=== PATIENT | female | born 1995 | race Caucasian/White ===

== ENCOUNTER 2022-01-23 09:41 | Emergency (ER) | payer MEDICAID, SELFPAY ==
--- NOTE | 2022-01-23 | ECG_ITS ---
Test Reason : right face numbness Blood Pressure : / mmHG Vent. Rate : 107 BPM Atrial Rate : 107 BPM P-R Int : 132 ms QRS Dur : 074 ms QT Int : 342 ms P-R-T Axes : 071 077 -39 degrees QTc Int : 456 ms Sinus tachycardia T wave abnormality, consider inferior ischemia RSR' or QR pattern in V1 suggests right ventricular conduction delay Nonspecific T wave abnormality Anterior leads Abnormal ECG When compared with ECG of 26-APR-2016 22:18, No significant change was found Referred By: Generic ED Physician Electronically Signed By:TIFF CROWE MD
[2022-01-23 09:43] VITALS: BP 123/90; PULSE 112; RESP 18; TEMP 36.7; O2SAT 98; BMI 21.1
--- NOTE | 2022-01-23 09:50 | PC.NURSE ---
notified charge ekg needed in triage
--- NOTE | 2022-01-23 10:10 | PC.NURSE ---
Addendum entered by Demi Almendarez RN 01/23/22 10:18: mistype of previous note- asked tech to perform ekg Original Note: asked tech to perform triage
[2022-01-23 12:01] LABS: MANUAL DIFF FLAG NO
[2022-01-23 12:03] LABS: Basophils Percent Auto 0.2 % (0-2); Eosinophils Absolute Auto 0.1 X10*3/uL (0.0-0.4); Eosinophils Percent Auto 0.6 % (0-4); Hematocrit 37.5 % (37.0-47.0); Hemoglobin 12.4 g/dl (12.0-16.0); Imm Gran Abs Auto 0.02 X10*3/uL (0.00-0.03); Imm Gran Pct Auto 0.2 % (0.0-0.4); Lymphocytes Absolute Auto 1.5 X10*3/uL (1.2-4.9); Lymphocytes Percent Auto 18.3 % (20-40); Mean Corpuscular HGB Conc 33.1 g/dl (31.0-35.0); Mean Corpuscular Hemoglobin 27.7 pg (27.0-33.0); Mean Corpuscular Volume 83.7 fL (80.0-98.0); Mean Platelet Volume 11.4 fL (9.4-12.3); Monocytes Absolute Auto 0.6 X10*3/uL (0.1-1.2); Monocytes Percent Auto 6.8 % (2-11); Neutrophils Absolute Auto 6.2 x10*3/uL (2.0-8.3); Neutrophils Percent Auto 73.9 % (45-73); Platelet Count 259 X10*3/uL (160-400); Red Blood Count 4.48 X10*6/uL (4.20-5.50); Red Cell Distribution Width 13.5 % (11.0-16.0); White Blood Count 8.3 X10*3/uL (4.8-10.8)
[2022-01-23 12:15] LABS: Anion Gap 16 (12-20); Blood Urea Nitrogen 7 mg/dL (9-16); Calcium 9.6 mg/dL (8.4-10.2); Carbon Dioxide 22 mmol/L (22-29); Chloride 106 mmol/L (96-108); Creatinine Clr Calc Pharmacy 88.4; Estimated Glomerular Filt Rate > 60; Glucose Random 86 mg/dL (60-115); Potassium 3.8 mmol/L (3.3-5.1); Sodium 140 mmol/L (135-145)
[2022-01-23 13:53] VITALS: BP 136/79; PULSE 106; RESP 16; TEMP 36.9; O2SAT 100
[2022-01-23 15:49] VITALS: BP 116/82; PULSE 79; RESP 16; TEMP 36.9; O2SAT 99
--- NOTE | 2022-01-23 15:51 | ED_ITS ---
HPI - Neuro Symptoms/Deficit General Chief Complaint: Neuro Symptoms/Deficit Stated Complaint: L side of face numb Time Seen by Provider: 01/23/22 15:50 Source: patient Mode of arrival: ambulatory Limitations: no limitations History of Present Illness HPI Narrative: Patient is a 26 year old assigned female at with no reported medical history, presenting to the emergency department today with resolved right hand and facial tingling. Patient states that when she woke up this morning she had numbness and tingling to her right face and right upper extremity. Patient states that after a few minutes, the numbness and tingling went away. Patient states that now, it is completely gone. Patient denies any dizziness, lightheadedness, abdominal pain, nausea, vomiting, fever, chills, blurry vision, double vision, loss of vision, chest pain, difficulty breathing, shortness of breath, back pain, night sweats, pain with urination, increased urinary frequency, increased urinary urgency, blood in her urine or stool, syncope or a near syncopal episode, recent trauma or falls, bowel incontinence, bladder incontinence, bowel retention, bladder retention, or any other complaints at this time. History of same: No Severity: mild Quality: numb and tingling Relieving factors: time Exacerbating factors: none Associated symptoms: denies other symptoms Treatments Prior to Arrival: none Related Data Allergies Allergy/AdvReac Type Severity Reaction Status Date / Time No Known Allergies Allergy Verified 01/23/22 09:43 [No Known Allergies*] Review of Systems Constitutional: Constitutional: Reports no additional constitutional complaints, Denies chills, Denies fever(s) and Denies night sweats Eyes: Eyes: Reports no additional eye complaints, Denies blurry vision, Denies change in vision, Denies diplopia, Denies eye discharge, Denies loss of vision and Denies eye pain ENT: Denies dizziness Cardiovascular: Cardiovascular: Reports no additional cardiovascular complaints, Denies chest pain, Denies lightheadedness, Denies Loss of Consciousness and Denies dyspnea Respiratory: Respiratory: Reports no additional respiratory complaints and Denies dyspnea Gastrointestinal: Gastrointestinal: Reports no additional gastrointestinal complaints, Denies abdominal pain, Denies melena, Denies hematochezia, Denies change in bowel habits and Denies change in stool character Genitourinary: Genitourinary: Denies hematuria, Denies urinary frequency, Denies dysuria, Denies urinary incontinence, Denies urinary hesitancy and Denies urinary urgency Musculoskeletal: Musculoskeletal: Reports no additional musculoskeletal complaints, Denies numbness and Denies tingling Neurologic: Denies dizziness, Denies loss of vision, Denies numbness and Denies tingling Psychiatric: Psychiatric: Reports no additional psychiatric complaints Endocrine: Endocrine: Reports no additional endocrine complaints Hematologic/Lymphatic: Hematologic/Lymphatic: Reports no additional hematologic/lymphatic complaints Allergic/Immunologic: Allergic/Immunologic: Reports no additional allergic/i mmunologic complaints PMFSH Past Medical History Attestation statement: The following information was validated with the patient. Source: old records reviewed Social History Social History Advance Directives: No Advance Directives Information Provided: No Physical Exam Vital Signs: Vital Signs: Last Vital Signs Temp 98.4 F 01/23/22 15:49 Pulse 79 01/23/22 15:49 Resp 16 01/23/22 15:49 BP 116/82 01/23/22 15:49 Pulse Ox 99 01/23/22 15:49 O2 Del Method 01/23/22 15:49 BMI result Body Mass Index 21.1 Const: General: cooperative, no acute distress, alert and awake Nutritional Appearance: well nourished Orientation/consciousness: patient oriented x3 Limitations: no limitations HEENT: Head: Yes normal to inspection and Yes atraumatic Ears: hearing grossly normal bilaterally and external ears normal General nose exam: Normal external nose present, no nasal discharge noted and no epistaxis Face and sinus: Yes normal facial exam, No abrasion and No laceration Mouth: Normal oral and palatal mucosa present, no drooling and no muffled voice Eyes: General: appearance normal, both eyes and all related structures Periorbital: periorbital findings normal Eyelids: Yes eyelids normal Conjunctivae: conjunctivae normal Pupils: Equal, round and reactive pupils present EOM: EOMs intact bilaterally Neck: Neck: Yes normal visual inspection, Yes full ROM and Yes no lymphadenopathy Chest: Chest palpation & inspection: normal inspection of the chest Resp: Effort & Inspection: normal respiratory effort and able to speak in complete sentences Auscultation: clear to auscultation bilaterally Cardio: Rate: regular rate Rhythm: regular rhythm GI: Inspection: Yes normal to inspection Neuro: General: patient oriented x3 and moves all extremities Cranial nerves: Yes Equal, round and reactive pupils present Cognition (Neuro): normal cognition Motor exam (neuro): 5/5 motor strength present throughout Sensory Exam: Normal double simultaneous stimulation for sensation Coordination: [id number] test normal Extrem: General: Yes normal to inspection, Yes full ROM and Yes capillary refill normal Psych: Appearance: grossly normal Mental Status: mental status grossly normal Affect: normal affect Attitude: cooperative Thought process: Normal thought process present Thought content: Normal thought content present Insight: Good insight present (Psych) MDM - Neuro Symptoms/Deficit MDM Narrative Medical decision making narrative: Patient is a 26 year old assigned female at with no reported medical history presenting to the emergency department today with resolved right sided facial and upper extremity numbness. Patient's physical exam was unremarkable including a negative neurological examination and stroke scale. Patient's blood work was unremarkable. Patient's current clinical presentation is most consistent with cervical radiculopathy. I explained my physical exam findings as well as all test results to the patient. I answered all questions asked by the patient. I stressed the importance of the patient taking her medication as p rescribed. I stressed the importance of the patient following up with her primary care provider. I stressed the importance of the patient returning to the emergency department immediately if her symptoms were to return or if she were to develop any dizziness, shortness of breath, difficulty breathing, chest pain, blurry vision, loss of vision, nausea, vomiting, abdominal pain, fever, chills, back pain, or any other complaints. Patient verbalized agreement and understanding with this treatment plan and discharge. Medical Records Attestation: I reviewed the patient's medical records. Lab Data Attestation: I reviewed the patient's lab results. Result diagrams: 01/23/22 11:38 01/23/22 11:38 Labs: Lab Results 01/23/22 01/23/22 Range/Units 11:38 11:38 WBC 8.3 (4.8-10.8) X10*3/uL RBC 4.48 (4.20-5.50) X10*6/uL Hgb 12.4 (12.0-16.0) g/dl Hct 37.5 (37.0-47.0) % MCV 83.7 (80.0-98.0) fL MCH 27.7 (27.0-33.0) pg MCHC 33.1 (31.0-35.0) g/dl RDW 13.5 (11.0-16.0) % Plt Count 259 (160-400) X10*3/uL MPV 11.4 (9.4-12.3) fL Immature Gran % (Auto) 0.2 (0.0-0.4) % Neut % (Auto) 73.9 H (45-73) % Lymph % (Auto) 18.3 L (20-40) % Piatt % (Auto) 6.8 (2-11) % Eos % (Auto) 0.6 (0-4) % Baso % (Auto) 0.2 (0-2) % Lymph # (Auto) 1.5 (1.2-4.9) X10*3/uL Piatt # (Auto) 0.6 (0.1-1.2) X10*3/uL Eos # (Auto) 0.1 (0.0-0.4) X10*3/uL Baso # (Auto) 0.0 (0.0-0.2) X10*3/uL Abs Immat Gran (auto) 0.02 (0.00-0.03) X10*3/uL Absolute Neuts (auto) 6.2 (2.0-8.3) x10*3/uL Absolute Nucleated RBC 0.000 (0.0-0.012) X10*3/uL Nucleated RBC % (auto) 0.0 (0.0-0.2) /100WBC Sodium 140 (135-145) mmol/L Potassium 3.8 (3.3-5.1) mmol/L Chloride 106 (96-108) mmol/L Carbon Dioxide 22 (22-29) mmol/L Anion Gap 16 (12-20) BUN 7 L (9-16) mg/dL Creatinine 0.74 (0.5-1.4) mg/dL Estim Creat Clear Calc 88.4 Estimated GFR > 60 Random Glucose 86 (60-115) mg/dL Calcium 9.6 (8.4-10.2) mg/dL Discharge Plan Discharge Clinical Impression: Cervical radiculopathy Patient Disposition: Home, Self-Care Instructions: Cervical Radiculopathy (ED) Additional Instructions: Follow up with your primary care provider. Return to the emergency department immediately if your symptoms worsen or if you develop any dizziness, shortness of breath, difficulty breathing, chest pain, blurry vision, loss of vision, nausea, vomiting, abdominal pain, fever, chills, back pain, or any other complaints. Referrals: [facility] [place] Family Medicine [Provider Group] (Call to establish and follow up with a primary care provider. If you already have a primary care provider, please follow up with them. ) [facility] [place] [Provider Group] (Call to establish and follow up with a primary care provider. If you already have a primary care provider, please follow up with them. ) [facility] [place] [Provider Group] (Call to establish and follow up with a primary care provider. If you already have a primary care provider, please follow up with them. ) Stand Alone Forms: Work/School Release Interventions: ED Discharge Assessment Last Done: 01/23/22 16:09 Discharge Date/Time: 01/23/22 16:09 Print Language: Salvadorean
== END 2022-01-23 16:09 | disposition home or self-care (01) ==
LOC: HO.ED 16:03
PROVIDERS: Emergency Provider Emergency Medicine Emergency Medical Services
DX: R20.0 Anesthesia of skin (principal); M54.12 Radiculopathy, cervical region; Z79.899 Other long term (current) drug therapy
CPT/HCPCS: 36415; 80048; 85025; 93005; 99283

== ENCOUNTER 2022-11-06 15:34 | Outpatient (REF) | payer MEDICAID, SELFPAY ==
[2022-11-06 17:04] LABS: Iron 57 mcg/dL (30-160); Percent Iron Saturation 14 % (15-50); Total Iron Binding Capacity 412 mcg/dL (228-428); Unsaturated Iron Binding 355 ug/dL
[2022-11-06 17:23] LABS: Ferritin 4 ng/mL (10-122)
== END 2022-11-06 15:35 | disposition home or self-care (01) ==
LOC: HO.HHCL 15:34
PROVIDERS: Visit Provider Registered Nurse
DX: R25.8 Other abnormal involuntary movements (principal)
CPT/HCPCS: 36415; 82728; 83540; 84443

== ENCOUNTER 2023-07-09 05:40 | Emergency (ER) | payer MEDICAID, SELFPAY ==
--- NOTE | ~2023-07-09 | CT_ITS ---
EXAMINATION: CT ABDOMEN AND PELVIS WITHOUT CONTRAST CLINICAL INFORMATION: Flank pain. History of renal colic. COMPARISON: Previous CT of the abdomen and pelvis September 2017 TECHNIQUE: Multidetector volumetric imaging was performed from the superior aspect of the liver through the pubic symphysis. Sagittal and coronal reformatted images were obtained on the technologist's workstation. This CT examination was performed using dose optimization techniques as appropriate, variously including the following: *Automated exposure control *Adjustment of mA and/or kV according to patient size (this includes techniques or standardized protocols for targeted exams where dose is matched to indication/reason for exam; i.e. extremities or head) *Use of iterative reconstruction technique DLP: 373 mGy-cm FINDINGS: LUNG BASES: The visualized lung bases are unremarkable. LIVER, GALLBLADDER, AND BILIARY TREE: The liver is normal in size, shape, and attenuation. No focal hepatic lesion or biliary ductal dilatation is present. The gallbladder is unremarkable with no evidence of radiopaque gallstones, gallbladder wall thickening, or obvious pericholecystic inflammatory changes. PANCREAS: Unremarkable. SPLEEN: Unremarkable. ADRENAL GLANDS: Unremarkable. KIDNEYS AND URETERS: Moderate to severe right hydronephrosis and ureteral dilatation from a 4 mm right distal ureteral stone. There is stranding of the right perinephric fat and small amount of fluid surrounding the right kidney and ureter. This may be related to backflow of urine from obstruction. Differential would include infection. Clinical correlation recommended. Small bilateral renal stones. BLADDER: Not optimally distended. GASTROINTESTINAL TRACT: The small and large bowel are unremarkable. The appendix is unremarkable. ABDOMINAL WALL: No significant hernia is appreciated. LYMPH NODES: Normal. VASCULAR: Unremarkable. PELVIC VISCERA: Unremarkable. OSSEOUS STRUCTURES: Unremarkable. CT/CT abdomen pelvis wo IV con IMPRESSION: Moderate to severe right hydronephrosis and ureteral dilatation from a 4 mm right distal ureteral stone. Right perinephric and periureteral fat stranding and small amount of fluid. This may represent backflow of urine due to obstruction. Differential would include infection. Clinical correlation recommended. Small bilateral renal stones. Fleischner guidelines were followed.
[2023-07-09 05:45] VITALS: BP 139/89; PULSE 112; RESP 18; TEMP 36.4; O2SAT 98; BMI 22.9
[2023-07-09 06:02] LABS: Basophils Percent Auto 0.4 % (0-2); Eosinophils Absolute Auto 0.3 X10*3/uL (0.0-0.4); Eosinophils Percent Auto 2.4 % (0-4); Hematocrit 40.1 % (37.0-47.0); Hemoglobin 13.4 g/dl (12.0-16.0); Imm Gran Abs Auto 0.03 X10*3/uL (0.00-0.03); Imm Gran Pct Auto 0.3 % (0.0-0.4); Lymphocytes Absolute Auto 2.3 X10*3/uL (1.2-4.9); Lymphocytes Percent Auto 20.1 % (20-40); MANUAL DIFF FLAG NO; Mean Corpuscular HGB Conc 33.4 g/dl (31.0-35.0); Mean Corpuscular Hemoglobin 28.3 pg (27.0-33.0); Mean Corpuscular Volume 84.6 fL (80.0-98.0); Mean Platelet Volume 10.9 fL (9.4-12.3); Monocytes Percent Auto 9.2 % (2-11); Neutrophils Absolute Auto 7.7 x10*3/uL (2.0-8.3); Neutrophils Percent Auto 67.6 % (45-73); Platelet Count 280 X10*3/uL (160-400); Red Blood Count 4.74 X10*6/uL (4.20-5.50); Red Cell Distribution Width 12.5 % (11.0-16.0); White Blood Count 11.4 X10*3/uL (4.8-10.8)
[2023-07-09 06:18] LABS: Alanine Aminotransferase 9 U/L (0-31); Albumin Level 4.3 g/dL (3.5-5.0); Alkaline Phosphatase 63 U/L (39-117); Anion Gap 15 (12-20); Aspartate Amino Transferase 14 U/L (5-31); Bilirubin Total 0.3 mg/dL (0.0-1.0); Blood Urea Nitrogen 9 mg/dL (9-16); Calcium 9.5 mg/dL (8.4-10.2); Carbon Dioxide 19 mmol/L (22-29); Chloride 109 mmol/L (96-108); Creatinine Clr Calc Pharmacy 59.5; Estimated Glomerular Filt Rate > 60; Glucose Random 97 mg/dL (60-115); Potassium 3.4 mmol/L (3.3-5.1); Sodium 140 mmol/L (135-145); Total Protein 7.7 g/dL (6.5-8.0)
[2023-07-09 08:03] LABS: HCG Quantitative < 2 mIU/mL
[2023-07-09 08:07] VITALS: BP 135/79; PULSE 112; RESP 19; TEMP 36.8; O2SAT 99
--- NOTE | 2023-07-09 08:09 | ED_ITS ---
HPI - General Adult General Chief complaint: Abdominal Pain Stated complaint: ride sided pain, possible kidney stone Time Seen by Provider: 07/09/23 08:07 Source: patient Mode of arrival: ambulatory Limitations: no limitations History of Present Illness HPI narrative: Patient is a 28-year-old female with history of kidney stones presenting to the emergency department with complaint of right flank pain radiating to abdomen which began abruptly around 1:00 a.m.. Patient reports hematuria. Also complains of nausea and vomiting. States pain is similar to previous episodes of kidney stones but more severe. Denies fevers. Denies any diarrhea or constipation. LMP 06/24-. Is on OCPs. MD complaint: Right flank pain Onset (ago): hour(s) Radiation: abdomen Severity: severe Severity scale (1-10): 8 Quality: sharp Pain Consistency: constant Relieving factors: none Exacerbating factors: movement Associated symptoms: nausea/vomiting Treatments prior to arrival: none Related Data Previous Rx's Medication Instructions Recorded cefuroxime axetil 500 mg tablet 500 mg PO BID #14 tabs 07/09/23 ondansetron HCl 4 mg tablet 4 mg PO Q8H PRN nausea and 07/09/23 vomiting #10 tabs oxycodone 5 mg tablet 5 mg PO Q8H PRN severe pain (scale 07/09/23 score 7-10) #6 tabs prednisone 20 mg tablet 20 mg PO DAILY #5 tabs 07/09/23 tamsulosin 0.4 mg capsule 0.4 mg PO DAILY #14 caps 07/09/23 Allergies Allergy/AdvReac Type Severity Reaction Status Date / Time No Known Allergies Allergy Verified 01/23/22 09:43 [No Known Allergies*] Review of Systems 2 Review of Systems: As per HPI. Yes all other systems are reviewed and are negative Constitutional: Constitutional: Reports as per HPI [facility] Social History Social History Smoked in Last 30 Days: No Use of substances other than those prescribed or required for medical reasons: No Advance Directives: No Advance Directives Information Provided: No Physical Exam ED Vital Signs: Vital Signs - 24 hr 07/09/23 05:45 07/09/23 08:07 07/09/23 08:29 Temperature 97.6 F 98.2 F Pulse Rate 112 H 112 H 117 H Respiratory Rate 18 19 22 H Blood Pressure 139/89 135/79 133/92 H Pulse Oximetry 98 99 97 Oxygen Delivery Method Room Air Room Air Room Air BMI result Body Mass Index 22.9 Vital signs have been reviewed and appear to be correct. Blood pressure normal. Heart rate tachycardic. Respiratory rate normal. Temperature normal. Oxygen saturation normal. Const General: cooperative, healthy appearing and no acute distress Orientation/consciousness: oriented to person, oriented to place, oriented to time and patient oriented x3 Limitations: no limitations HENMT Head: Yes normocephalic and Yes atraumatic Ears: external ears normal General nose exam: Normal external nose present Face and sinus: Yes face symmetric Mouth: oropharynx normal and moist mucous membranes Throat: Yes uvula midline Eyes Pupils: Equal, round and reactive pupils present Neck Neck: Yes normal visual inspection and Yes supple Resp Effort & Inspection: normal respiratory effort and able to speak in complete sentences Auscultation: clear to auscultation bilaterally Cardio Rate: regular rate Rhythm: regular rhythm Heart sounds: S1 normal heart sound present and S2 normal heart sound present GI Palpation (GI): Soft to palpation and nontender Auscultation: normoactive bowel sounds General: Yes no CVA tenderness Back/Spine/Pelvis Back: no CVA tenderness Skin General skin exam: elasticity normal and turgor normal Neuro General: oriented to person, oriented to place, oriented to time, patient oriented x3, moves all extremities, no focal motor deficits and CN's II-XI intact bilaterally Cranial nerves: Yes Equal, round and reactive pupils present Cognition (Neuro): normal cognition Extrem General: Yes full ROM, Yes no pedal edema and Yes no calf tenderness Psych Mental Status: mental status grossly normal Affect: normal affect Thought process: Normal thought process present Medications Administered Discontinued Medications Generic Name Dose Route Start Last Admin Trade Name Freq PRN Reason Stop Dose Admin Sodium Chloride 1,000 mls @ 999 mls/hr 07/09/23 08:15 07/09/23 10:43 Ns IV 07/09/23 09:15 Infused .Q1H1M GIL Infusion Ketorolac Tromethamine 15 mg 07/09/23 08:10 07/09/23 08:34 Ketorolac Tromethamine 15 Mg/Ml Vial IVPUSH 07/09/23 08:11 15 mg ONCE ONE Administration Morphine Sulfate 2 mg 07/09/23 08:54 07/09/23 09:11 Morphine Sulfate 2 Mg/Ml Cartridge IVPUSH 07/09/23 08:55 2 mg ONCE ONE Administration Protocol Ondansetron HCl 4 mg 07/09/23 08:10 07/09/23 08:34 Ondansetron Hcl 4 Mg/2 Ml Vial IVPUSH 07/09/23 08:11 4 mg ONCE ONE Administration Medical Decision Making Medical Decision Making [facility] Narrative: Patient is a 28-year-old female with history of kidney stones presenting to the emergency department with complaint of right flank pain radiating to abdomen which began abruptly around 1:00 a.m. On exam patient is awake, A+Ox3, tachycardic, VS otherwise WNL, afebrile, normal neurological exam without focal deficits, physical exam findings as above. Given reported symptoms and physical exam findings, initial differential includes renal/ureteral calculi, UTI/pyelonephritis. Labs notable for slight leukocytosis, no evidence of MARISOL. Urinalysis notable for CT notable for 4mm distal ureteral calculi with moderate to severe R hydronephrosis with R perinephric and periureteral fat stranding and small amount of fluid. . My interpretation is in agreement with the radiologist's interpretation. Case discussed with Dr. Munoz, urology, who is in agreement with discharge home on antibiotics, prednisone, Flomax, pain and nausea control with strict return precautions which were discussed at bedside. Patient to follow-up in urology office outpatient unless symptoms worsen. Discussed plan with patient and she is agreeable to this. Differential Diagnosis Differential Diagnoses: The differential diagnosis associated with the presentation includes As per [facility]. Admission/Observation Consideration of admission/observation: Escalation of care including admission/observation considered Patient would have been admitted to the hospital had their work up had any findings where hospital admission was appropriate and their clinical presentation warranted hospital admission. Consult Healthcare Provider Management of the patient was discussed with: Mailhouse Operator (Dr. Eaton) Lab Data [facility] Lab Attestation statement: I reviewed the patient's lab results. As per [facility]. 07/09/23 05:57 07/09/23 05:57 Labs: Lab Results 07/09/23 07/09/23 Range/Units 05:57 08:12 WBC 11.4 H (4.8-10.8) X10*3/uL RBC 4.74 (4.20-5.50) X10*6/uL Hgb 13.4 (12.0-16.0) g/dl Hct 40.1 (37.0-47.0) % MCV 84.6 (80.0-98.0) fL MCH 28.3 (27.0-33.0) pg MCHC 33.4 (31.0-35.0) g/dl RDW 12.5 (11.0-16.0) % Plt Count 280 (160-400) X10*3/uL MPV 10.9 (9.4-12.3) fL Immature Gran % (Auto) 0.3 (0.0-0.4) % Neut % (Auto) 67.6 (45-73) % Lymph % (Auto) 20.1 (20-40) % Yell % (Auto) 9.2 (2-11) % Eos % (Auto) 2.4 (0-4) % Baso % (Auto) 0.4 (0-2) % Lymph # (Auto) 2.3 (1.2-4.9) X10*3/uL Yell # (Auto) 1.0 (0.1-1.2) X10*3/uL Eos # (Auto) 0.3 (0.0-0.4) X10*3/uL Baso # (Auto) 0.0 (0.0-0.2) X10*3/uL Abs Immat Gran (auto) 0.03 (0.00-0.03) X10*3/uL Absolute Neuts (auto) 7.7 (2.0-8.3) x10*3/uL Absolute Nucleated RBC 0.000 (0.0-0.012) X10*3/uL Nucleated RBC % (auto) 0.0 (0.0-0.2) /100WBC Sodium 140 (135-145) mmol/L Potassium 3.4 (3.3-5.1) mmol/L Chloride 109 H (96-108) mmol/L Carbon Dioxide 19 L (22-29) mmol/L Anion Gap 15 (12-20) BUN 9 (9-16) mg/dL Creatinine 1.08 (0.5-1.4) mg/dL Estim Creat Clear Calc 59.5 Estimated GFR > 60 Random Glucose 97 (60-115) mg/dL Calcium 9.5 (8.4-10.2) mg/dL Total Bilirubin 0.3 (0.0-1.0) mg/dL AST 14 (5-31) U/L ALT 9 (0-31) U/L Alkaline Phosphatase 63 (39-117) U/L Total Protein 7.7 (6.5-8.0) g/dL Albumin 4.3 (3.5-5.0) g/dL Beta HCG, Quant < 2 mIU/mL Urine Color Yellow Urine Appearance Cloudy Urine pH 5.5 (5.0-9.0) Ur Specific Acosta >= 1.030 H (1.005-1.025) Urine Protein 30 (1+) H (Neg-Trace) mg/dL Urine Glucose (UA) Negative (Negative) mg/dL Urine Ketones Trace (Negative) mg/dL Urine Blood Moderate (2+) H (Negative) Urine Nitrite Negative (Negative) Ur Leukocyte Esterase Trace H (Negative) Urine RBC 3-5 H (0-2) /HPF Urine WBC 0-5 (0-5) /HPF Ur Squamous Epith Cells 6-10 (0-2) /HPF Calcium Oxalate Crystal Present Other Crystals Present Urine Bacteria 2+ (None Seen) Hyaline Casts 0-2 (0-2) /LPF Independent Interpretation I performed an independent interpretation of an: CT Scan Interpretation: 4mm right distal ureteral calculi with moderate to severe right hydronephrosis Radiology Impression Discussion of test interpretation with radiology: I have reviewed the radiologist's reading. Radiologist Impression: CT/CT abdomen pelvis wo IV con IMPRESSION: Moderate to severe right hydronephrosis and ureteral dilatation from a 4 mm right distal ureteral stone. Right perinephric and periureteral fat stranding and small amount of fluid. This may represent backflow of urine due to obstruction. Differential would include infection. Clinical correlation recommended. Small bilateral renal stones. Fleischner guidelines were followed. External Record Review External record reviewed: Inpatient record, Office record and Outpatient record Prescription Management I considered prescription management with: Pain Medication, Antibiotic and Other Discharge Plan Discharge Clinical Impression: Right ureteral calculus, Urinary tract infection Patient Disposition: Home, Self-Care Instructions: Urinary Tract Infection in Women (DC), Low Oxalate Diet (ED), How to Strain Your Urine (ED), Ureteral Stones (ED) Additional Instructions: You were evaluated in the emergency department for flank pain. Your CT scan showed evidence of a stone in your right ureter. The stone is 4 mm which may or may not pass on its own. Your are being provided with a urine strainer to use at home, instructions are included in your discharge paperwork. You are being prescribed prednisone to decrease inflammation, tamsulosin to allow the stone to pass more easily, and oxycodone as needed for severe pain. You can also take 600 mg of ibuprofen every 6 hours as needed for pain. You are being prescribed oxycodone for severe pain not controlled with Tylenol and ibuprofen. You are being prescribed ondansetron which you can use every 8 hours as needed for nausea. You are also being prescribed an antibiotic for a urinary tract infection, please complete the full course of antibiotics as prescribed. You are being referred to Urology, please call them 1st thing Wednesday morning for an appointment this week. Return to the emergency department if you develop worsening pain, persistent vomiting, fever 100.4? or greater, inability to urinate, or any other concerning symptoms. Prescriptions: New cefuroxime axetil 500 mg tablet 500 mg PO BID Qty: 14 0RF prednisone 20 mg tablet 20 mg PO DAILY Qty: 5 0RF tamsulosin 0.4 mg capsule 0.4 mg PO DAILY Qty: 14 0RF ondansetron HCl 4 mg tablet 4 mg PO Q8H PRN (Reason: nausea and vomiting) Qty: 10 0RF oxycodone 5 mg tablet 5 mg PO Q8H PRN (Reason: severe pain (scale score 7-10)) Qty: 6 0RF Rx Instructions: Partial Fill upon patient request. Referrals: [facility] Urology Services [Provider Group] Stand Alone Forms: Work/School Release
--- NOTE | 2023-07-09 08:25 | PC.NURSE ---
Pt reports severe right sided flank pain since 1AM this morning, reports sharp and aching pain 10/10 that woke her up. Pain does radiate to lower ABD area. Pt also reports some blood in urine and nausea/vomiting. Pt denies any hx of kidney stones or other kidney/bladder issues. Pt denies CP, SOB, fever and cough. Pt is alert and oriented, breathing even and unlabored, skin warm and dry. Pt is obviously uncomfortable and restless. Noted to tachycardic, otherwise VSS.
[2023-07-09 08:29] VITALS: BP 133/92; PULSE 117; RESP 22; O2SAT 97
[2023-07-09 08:29] LABS: Appearance Urine Cloudy; Color Urine Yellow; Glucose Urine UA Negative (Negative); Leukocyte Esterase Urine Trace (Negative); Nitrite Urine Negative (Negative); PH 5.5 (5.0-9.0); Specific Gravity - Urine >= 1.030 (1.005-1.025); UMIC TRIGGER UACC YES; Urine Blood Moderate (2+) (Negative); Urine Ketones Trace mg/dL (Negative); Urine Protein 30 (1+) mg/dL (Neg-Trace)
[2023-07-09] MEDS: Ketorolac Tromethamine 15 MG/ML VIAL IVPUSH (08:34)
[2023-07-09] MEDS: ondansetron HCL 4 MG/2 ML VIAL IVPUSH (08:34)
[2023-07-09] MEDS: 0.9 % Sodium Chloride 1,000 ML 999 ML IV (08:37)
[2023-07-09 08:40] LABS: WBC Urine 0-5 /HPF (0-5)
[2023-07-09 08:41] LABS: Bacteria Urine 2+ (None Seen); Calcium Oxalate Crystals Urine Present; Hyaline Casts Urine 0-2 /LPF (0-2); Other Crystals Urine Present
[2023-07-09] MEDS: Morphine Sulfate 2 MG/ML CARTRIDGE IVPUSH (09:11)
--- NOTE | 2023-07-09 10:48 | PC.NURSE ---
Pt resting in bed, reports pain is manageable now, /. No vomiting or nausea at this time.
[2023-07-09 12:04] VITALS: BP 106/73; PULSE 104; RESP 17; TEMP 36.6; O2SAT 99
[2023-07-09 12:05] VITALS: BP 106/73; PULSE 102; RESP 16; TEMP 36.6; O2SAT 99
[2023-07-09 12:06] VITALS: BP 106/73; PULSE 104; RESP 16; TEMP 36.6; O2SAT 99
== END 2023-07-09 12:13 | disposition home or self-care (01) ==
PROVIDERS: Emergency Provider Student in an Organized Health Care Education/Training Program
DX: N20.1 Calculus of ureter (principal); N39.0 Urinary tract infection, site not specified; R31.9 Hematuria, unspecified; R11.0 Nausea; Z79.899 Other long term (current) drug therapy
CPT/HCPCS: 36415; 74176; 80053; 81001; 84702; 85025; 96361; 96374; 96375; 99284; J1885; J2270; J2405

== ENCOUNTER 2023-07-13 13:45 | Outpatient (AMB) | payer MEDICAID, SELFPAY ==
--- NOTE | 2023-07-13 14:13 | A.OFFVIS_ITS ---
Intake Intake Visit Reasons: obstructing ureteral stone, hydronephrosis Intake Note: NEW Patient presents today to established treatment for: obstructing uretral stone and hydronephrosis Meds- Allergies to Antibiotic- No Known Allergies Blood Thinner- None Patient Symptoms: Patient stated she was having right lower back pain, and Wednesday she feels she passed the stone. She stated she feel better today, and she denies any pain or burning when she urinates. Tawanna also stated she is not longer taking Tamsulosin. Patient is in her menstruation. Child Development Teacher Required: No Accompanied by: Self / Same As Patient Allergies No Known Allergies [No Known Allergies*] Allergy (Verified 07/13/23 14:33) HPI HPI Comments History of Present Illness Details Nedra is a very pleasant 28-year-old female patient. She presents to the office today as a new patient for nephrolithiasis. In discussion with the patient today she reports having seeked emergency room services approximately 1 week ago for right-sided flank pain radiating to her abdominal area which time a CT of the abdomen was ordered and performed. These results were reviewed with the patient today. Moderate to severe right hydronephrosis and ureteral dilatation from a 4 mm right distal ureteral stone. Small bilateral renal stones noted. She reports having taking medications as prescribed by ER physician in pain subsided approximately 2 days after her ER visit. In office urinalysis results reviewed with the patient today. 2+ leukocytes positive nitrates. She does report being on her menses that started yesterday. She does report urinary frequency and foul-smelling urine. She otherwise denies incontinence, nocturia, hematuria, dysuria,changes to urinary stream, flank pain, fever, and or chills. She is happy with her current voiding parameters. She does report a longstanding history of nephrolithiasis however never requiring surgical intervention. She does report to not be drinking enough water daily. She otherwise denies any other issues or concerns at this time. Review of Systems Const All systems reviewed & are unremarkable except as noted in HPI and below Physical Exam Const General: cooperative, healthy appearing, comfortable, no acute distress, well developed, alert and awake Nutritional Appearance: average body habitus Orientation/consciousness: patient oriented x3 Limitations: no limitations HEENT Head: Yes normal to inspection, Yes normocephalic and Yes atraumatic Ears: hearing grossly normal bilaterally Eyes General: appearance normal, both eyes and all related structures Neck Neck: Yes normal visual inspection and Yes trachea midline Chest Chest palpation & inspection: normal inspection of the chest Resp Effort & Inspection: normal respiratory effort and able to speak in complete sentences Cardio Rate: regular rate GI Inspection: Yes normal to inspection General: Yes no CVA tenderness Back/Spine/Pelvis Back: no CVA tenderness Skin General skin exam: no rashes or lesions noted Neuro General: patient oriented x3 Extrem General: Yes normal to inspection Psych Appearance: grossly normal and well kempt Mental Status: mental status grossly normal Speech and movement: Normal speech and movement present and Clear speech present Affect: normal affect Attitude: cooperative Thought process: Normal thought process present Thought content: Normal thought content present Insight: Fair insight present (Psych) Judgement: Fair judgement present (Psych) Results AMB Urinalysis, Automated UA Leukoctes 125 Maryann/uL Last Edit by Madison Sorensonmathieu Sorenson [facility] on 07/13/23 14:30 UA Nitrite Positive Last Edit by Madison Sorensonmathieu Sorenson [facility] on 07/13/23 14: 30 UA Urobilinogen 0.2 mg/dL Last Edit by Madison Sorensonmathieu Sorenson [facility] on 4 14:30 UA Protein 100 mg/dL Last Edit by Madison Sorensonmathieu Sorenson [facility] on 07/13/23 14: 30 UA pH 6.0 Last Edit by Madison Sorensonmathieu Sorenson [facility] on 07/13/23 14:30 UA Blood 200 Mc/uL Last Edit by Madison Sorensonmathieu Sorenson [facility] on 07/13/23 14:3 0 UA Specific Naselle 1.025 Last Edit by Madison Sorensonmathieu Sorenson [facility] on 14:30 UA Ketone Positive Last Edit by Madison Sorensonmathieu Sorenson [facility] on 07/13/23 14:3 0 5 mg/dl Madison Sorenson 07/13/23 14:30 UA Bilirubin 1 mg/dL Last Edit by Madison Sorenson [facility] on 07/13/23 14: 30 UA Glucose 0 mg/dL Last Edit by Madison Sorenson [facility] on 07/13/23 14:30 Results Reviewed Results Reviewed: Laboratory Last Values Urine pH (Auto) 6.0 07/13/23 14:16 Specific Naselle (Auto) 1.025 07/13/23 14:16 Urine Protein (Auto) 100 mg/dL 07/13/23 14:16 Glucose (UA)(Auto) 0 mg/dL 07/13/23 14:16 Urine Ketones (Auto) Positive 07/13/23 14:16 Urine Blood (Auto) 200 Mc/uL 07/13/23 14:16 Urine Nitrite (Auto) Positive 07/13/23 14:16 Urine Bilirubin (Auto) 1 mg/dL 07/13/23 14:16 Urine Urobilinogen (Auto) 0.2 mg/dL 07/13/23 14:16 Leukocyte Esterase (Auto) 125 Maryann/uL 07/13/23 14:16 Date of Service: 07/09/23 EXAMINATION: CT ABDOMEN AND PELVIS WITHOUT CONTRAST FINDINGS: LUNG BASES: The visualized lung bases are unremarkable. LIVER, GALLBLADDER, AND BILIARY TREE: The liver is normal in size, shape, and attenuation. No focal hepatic lesion or biliary ductal dilatation is present. The gallbladder is unremarkable with no evidence of radiopaque gallstones, gallbladder wall thickening, or obvious pericholecystic inflammatory changes. PANCREAS: Unremarkable. SPLEEN: Unremarkable. ADRENAL GLANDS: Unremarkable. KIDNEYS AND URETERS: Moderate to severe right hydronephrosis and ureteral dilatation from a 4 mm right distal ureteral stone. There is stranding of the right perinephric fat and small amount of fluid surrounding the right kidney and ureter. This may be related to backflow of urine from obstruction. Differential would include infection. Clinical correlation recommended. Small bilateral renal stones. BLADDER: Not optimally distended. GASTROINTESTINAL TRACT: The small and large bowel are unremarkable. The appendix is unremarkable. ABDOMINAL WALL: No significant hernia is appreciated. LYMPH NODES: Normal. VASCULAR: Unremarkable. PELVIC VISCERA: Unremarkable. OSSEOUS STRUCTURES: Unremarkable. IMPRESSION: Moderate to severe right hydronephrosis and ureteral dilatation from a 4 mm right distal ureteral stone. Right perinephric and periureteral fat stranding and small amount of fluid. This may represent backflow of urine due to obstruction. Differential would include infection. Clinical correlation recommended. Small bilateral renal stones. Assessment & Plan Assessment & Plan (1) Complicated urinary tract infection: Code(s): N39.0 - Urinary tract infection, site not specified (2) Nephrolithiasis: Code(s): N20.0 - Calculus of kidney (3) Hydronephrosis concurrent with and due to calculi of kidney and ureter: Code(s): N13.2 - Hydronephrosis with renal and ureteral calculous obstruction Plan In office urinalysis results reviewed with the patient today; as noted above; will send for urine culture. Recent CT results reviewed with the patient today; as noted above Start Bactrim as discussed and prescribed. Discussed at length potential causes of nephrolithiasis. Will obtain retroperitoneal ultrasound for further assessment evaluation; and to ensure for resolution of moderate to severe hydronephrosis. Discussed potential causes for urinary tract infections. Discussed, educated, and stressed the importance of drinking plenty of water daily. Discussed near future metabolic workup with 24 hour urine and labs. Follow-up in 1-2 weeks with imaging to be completed prior; or sooner with any issues, concerns, and or questions. Orders: Orders AMB Urinalysis Automated Today R33.9 - Retention of urine, unspecified Urine Culture Today N39.0 - Urinary tract infection, site not specified US retroperitoneal comp Today N13.2 - Hydronephrosis with renal and ureteral calculous obstruction, N20.0 - Calculus of kidney, N39.0 - Urinary tract infection, site not specified Medications: New sulfamethoxazole-trimethoprim 800-160 mg (Bactrim DS) 1 tab PO BID 14 tabs 0RF 7 days N39.0 - Urinary tract infection, site not specified Patient Instructions: The patient had an opportunity to ask questions regarding the treatment plan. All questions were answered. Physical exam, labs, and imaging were discussed and reviewed in detail. As well as risks, benefits, and discussion of treatment choices. No major barriers to understanding were identified. The patient expressed understanding and agreement with the above treatment plan. The patient was made aware they should contact our office by phone for worsening of their current condition, the appearance of new symptoms, or with any questions or concerns. Compliance is encouraged with any medications and follow up testing that is ordered. It is a privilege to be allowed the opportunity to participate in? your urological care.? Again, if you have any questions or concerns If you have any questions or concerns please do not hesitate to contact me. The office is [phone]. This note is constructed using voice recognition software. While every effort has been made to ensure accuracy cigar packer and grader errors may have been included. Yours sincerely, CAROLIN Hooks Coding Level of Care Code New Pt Level 4 (03787) Diagnoses Complicated urinary tract infection N39.0 Nephrolithiasis N20.0 Hydronephrosis concurrent with and due to calculi of kidney and ureter N13.2
== END 2023-07-13 14:59 | disposition home or self-care (01) ==
PROVIDERS: Visit Provider Nurse Practitioner Family
DX: N39.0 Urinary tract infection, site not specified (principal); N13.2 Hydronephrosis with renal and ureteral calculous obstruction; R33.9 Retention of urine, unspecified
CPT/HCPCS: 99204

== ENCOUNTER 2023-07-13 13:45 | Outpatient (REF) | payer MEDICAID, SELFPAY | END 2023-07-13 13:46 | disposition home or self-care (01) | LOC: HO.LAB 13:45 | PROVIDERS: Visit Provider Nurse Practitioner Family | DX: N39.0 Urinary tract infection, site not specified (principal); N13.2 Hydronephrosis with renal and ureteral calculous obstruction; R33.9 Retention of urine, unspecified | CPT/HCPCS: 81003; 87086; 87088; 99212 ==

== ENCOUNTER 2023-08-02 17:52 | Outpatient (REF) | payer MEDICAID, SELFPAY | END 2023-08-02 17:53 | disposition home or self-care (01) | LOC: HO.HHCLNP 17:52 | PROVIDERS: Visit Provider Internal Medicine | DX: R39.9 Unspecified symptoms and signs involving the genitourinary system (principal) | CPT/HCPCS: 87086 ==

== ENCOUNTER 2023-10-01 09:59 | Outpatient (REF) | payer MEDICAID, SELFPAY ==
--- NOTE | ~2023-10-01 | XR_ITS ---
EXAMINATION: X-RAY CERVICAL SPINE X-RAY LUMBAR SPINE X-RAY THORACIC SPINE CLINICAL INFORMATION: Patient states neck and back pain comes and goes for years. Denies injury or accident, pain is worsening. COMPARISON: CT abdomen and pelvis of 07/09/2023. Chest radiograph 04/26/2016. TECHNIQUE: 3 views of the lumbar spine. 2 views of the thoracic spine. 7 views of the cervical spine. FINDINGS: Cervical spine: Slight reversal of the normal cervical lordosis. Mild spondylosis with mild loss of disc space height at C5-C6 and C6-C7. Thoracic spine: Mild dextroscoliosis of the thoracic spine. Thoracic vertebral body heights are preserved. Minimal degenerative changes in the thoracic spine. Lumbar spine: Mild rightward curvature of the lower lumbar spine. Mild facet arthritis at L5-S1. Lumbar disc space heights and alignment are preserved. Mild anterior loss of height of the L1 vertebral body, was also present on prior exams. XR/XR thoracic spine 2V IMPRESSION: 1. Mild degenerative disc disease at C5-C6 and C6-C7. 2. Mild dextroscoliosis of the thoracic spine. 3. Mild facet arthritis at L5-S1.
--- NOTE | ~2023-10-01 | XR_ITS ---
EXAMINATION: X-RAY CERVICAL SPINE X-RAY LUMBAR SPINE X-RAY THORACIC SPINE CLINICAL INFORMATION: Patient states neck and back pain comes and goes for years. Denies injury or accident, pain is worsening. COMPARISON: CT abdomen and pelvis of 07/09/2023. Chest radiograph 04/26/2016. TECHNIQUE: 3 views of the lumbar spine. 2 views of the thoracic spine. 7 views of the cervical spine. FINDINGS: Cervical spine: Slight reversal of the normal cervical lordosis. Mild spondylosis with mild loss of disc space height at C5-C6 and C6-C7. Thoracic spine: Mild dextroscoliosis of the thoracic spine. Thoracic vertebral body heights are preserved. Minimal degenerative changes in the thoracic spine. Lumbar spine: Mild rightward curvature of the lower lumbar spine. Mild facet arthritis at L5-S1. Lumbar disc space heights and alignment are preserved. Mild anterior loss of height of the L1 vertebral body, was also present on prior exams. XR/XR lumbar spine 2-3V IMPRESSION: 1. Mild degenerative disc disease at C5-C6 and C6-C7. 2. Mild dextroscoliosis of the thoracic spine. 3. Mild facet arthritis at L5-S1.
--- NOTE | ~2023-10-01 | XR_ITS ---
EXAMINATION: X-RAY CERVICAL SPINE X-RAY LUMBAR SPINE X-RAY THORACIC SPINE CLINICAL INFORMATION: Patient states neck and back pain comes and goes for years. Denies injury or accident, pain is worsening. COMPARISON: CT abdomen and pelvis of 07/09/2023. Chest radiograph 04/26/2016. TECHNIQUE: 3 views of the lumbar spine. 2 views of the thoracic spine. 7 views of the cervical spine. FINDINGS: Cervical spine: Slight reversal of the normal cervical lordosis. Mild spondylosis with mild loss of disc space height at C5-C6 and C6-C7. Thoracic spine: Mild dextroscoliosis of the thoracic spine. Thoracic vertebral body heights are preserved. Minimal degenerative changes in the thoracic spine. Lumbar spine: Mild rightward curvature of the lower lumbar spine. Mild facet arthritis at L5-S1. Lumbar disc space heights and alignment are preserved. Mild anterior loss of height of the L1 vertebral body, was also present on prior exams. XR/XR cervical spine 4V IMPRESSION: 1. Mild degenerative disc disease at C5-C6 and C6-C7. 2. Mild dextroscoliosis of the thoracic spine. 3. Mild facet arthritis at L5-S1.
[2023-10-01 11:25] LABS: MANUAL DIFF FLAG NO
[2023-10-01 11:30] LABS: Basophils Percent Auto 0.5 % (0-2); Eosinophils Absolute Auto 0.3 X10*3/uL (0.0-0.4); Hematocrit 38.5 % (37.0-47.0); Hemoglobin 12.8 g/dl (12.0-16.0); Imm Gran Abs Auto 0.01 X10*3/uL (0.00-0.03); Imm Gran Pct Auto 0.2 % (0.0-0.4); Lymphocytes Absolute Auto 2.9 X10*3/uL (1.2-4.9); Lymphocytes Percent Auto 45.3 % (20-40); Mean Corpuscular HGB Conc 33.2 g/dl (31.0-35.0); Mean Corpuscular Hemoglobin 28.4 pg (27.0-33.0); Mean Corpuscular Volume 85.6 fL (80.0-98.0); Mean Platelet Volume 11.4 fL (9.4-12.3); Monocytes Absolute Auto 0.7 X10*3/uL (0.1-1.2); Neutrophils Absolute Auto 2.4 x10*3/uL (2.0-8.3); Platelet Count 277 X10*3/uL (160-400); Red Cell Distribution Width 12.9 % (11.0-16.0); White Blood Count 6.4 X10*3/uL (4.8-10.8)
[2023-10-01 12:07] LABS: Anion Gap 11 (12-20); Blood Urea Nitrogen 9 mg/dL (9-16); Calcium 9.7 mg/dL (8.4-10.2); Carbon Dioxide 25 mmol/L (22-29); Chloride 110 mmol/L (96-108); Estimated Glomerular Filt Rate > 60; Glucose Random 88 mg/dL (60-115); Potassium 3.6 mmol/L (3.3-5.1); Sodium 142 mmol/L (135-145)
[2023-10-01 12:13] LABS: Ferritin 7 ng/mL (10-122); Vitamin D 25-OH Total 34.7 ng/mL (>30)
[2023-10-04 08:33] LABS: Syphilis Screen Nonreactive (Nonreactive)
[2023-10-04 08:59] LABS: HBS Num1 0.54 mIU/mL (0-7.99); HBc Num1 0.11 S/CO (0.00-0.79); HBsAGNum1 0.36 S/CO (0.00-0.99); HIV AB/AG Nonreactive (Nonreactive); HIV Num 1 0.06 S/CO (0.00-0.99); Hepatitis A Antibody IgM 0.15 Index (0-0.79); Hepatitis B Core Antibody Nonreactive (Nonreactive); Hepatitis B Surface Antigen Negative (Negative); ~Hepatitis A Antibody IgM Nonreactive (Nonreactive); ~Hepatitis B Surface Antibody NONREACTIVE (Nonreactive); ~Hepatitis C Antibody Nonreactive (Nonreactive)
== END 2023-10-01 10:00 | disposition home or self-care (01) ==
LOC: HO.HHCL 09:59
PROVIDERS: Visit Provider Internal Medicine
DX: E61.1 Iron deficiency (principal); M54.2 Cervicalgia; M41.9 Scoliosis, unspecified
CPT/HCPCS: 36415; 72050; 72070; 72100; 80048; 82306; 82728; 85025; 86704; 86706; 86709; 86780; 86803; 87340; 87389

== ENCOUNTER 2024-03-15 | Outpatient (REF) | payer MEDICAID, SELFPAY ==
[2024-03-16 06:20] LABS: CT PCR NOT DETECTED (Not Detect.); NG PCR NOT DETECTED (Not Detect.)
[2024-03-16 10:40] LABS: Bacterial Vaginosis PCR POSITIVE (Negative); Candida Group PCR NOT DETECTED (Not Detect); Candida glab krusei PCR NOT DETECTED (Not Detect); Trichomonas vaginalis PCR NOT DETECTED (Not Detect)
== END 2024-03-15 00:01 | disposition home or self-care (01) ==
LOC: HO.LNP
PROVIDERS: Visit Provider Internal Medicine
DX: Z01.419 Encounter for gynecological examination (general) (routine) without abnormal findings (principal)
CPT/HCPCS: 0352U; 87491; 87591; 88175

== ENCOUNTER 2024-08-07 16:08 | Outpatient (REF) | payer MEDICAID, SELFPAY ==
--- OUTSIDE RECORDS SUMMARY | 2024-08-07 18:49 | XMS_ITS | Encounter Summary ---
Author Organization [employer] Address [address] [place] [address] 7 [place] [address] Care Team Providers Care Network Systems Administrator Name Role Phone Leighann Dickey MD Primary Care Provider + Encounter Details Date Type Department Care Team (Late Contact Info) Description 11/13/2022 [facility] Only [facility] [address] [place] [address] Nadja Santos FNP [address] [place] [address] Social History Tobacco Use Types Packs/Day Years Used Date Smoking Tobacco: Never Smokeless Tobacco: Never Comments Unknown Sex and Gender Information Value Date Recorded Sex Assigned at Female 02/09/2022 10:17 AM EDT Legal Sex Female 10:17 AM EDT Gender Identity Female 02/09/2022 10:17 AM EDT Sexual Orientation Straight 08/02/2023 11 :45 PM EDT documented as of this encounter Plan of Treatment Upcoming Encounters Date Type Department Care Team (Late st Contact Info) Description 10/02/2024 2:00 PM EDT Office Visit [facility] [address] [place] [address] Violet Silvestre FNP [address] [place] [address] documented as of this encounter Visit Diagnoses Not on filedocumented in this encounter Care Teams Network Systems Administrator Relationship Specialty Start Date End Date Leighann Dickey MD [address] [place] [address] PCP - General Internal Medicine 10/01/23 documented as of this encounter
--- OUTSIDE RECORDS SUMMARY | 2024-08-07 18:49 | XMS_ITS | Encounter Summary ---
Author Organization [facility] Address [address] [place] [address] [address] [place] [address] Care Team Providers Care Assistant Bookkeeper Name Role Phone Leighann Dickey MD Primary Care Provider + Reason for Visit * Reason Comments Med Refill Encounter Details Date Type Department Care Team (Late Contact Info) Description 07/13/2023 Refill [facility] [address] [place] [address] Nadja Santos FNP [address] [place] [address] Social History Tobacco Use Types Packs/Day Years [...] Encounters Date Type Department Care Team (Late Contact Info) Description 10/02/2024 2:00 PM EDT Office Visit [facility] [address] [place] [address] Violet Silvestre FNP [address] [place] [address] documented as of this encounter Visit Diagnoses Not on filedocumented in this encounter Care Teams Assistant Bookkeeper Relationship Specialty Start Date End Date Leighann Dickey MD [address] [place] [id number] PCP - General Internal Medicine 10/01/23 documented as of this encounter
--- OUTSIDE RECORDS SUMMARY | 2024-08-07 18:50 | XMS_ITS | Encounter Summary ---
Author Organization [employer] Address [address] [place] [address] Care Team Providers Care Protozoologist Name Role Phone Leighann Dickey MD Primary Care Provider + Reason for Visit * Reason Comments Cough Encounter Details Date Type Department Care Team ([facility] Contact Info) Description 08/07/2024 1:40 PM EDT Office Visit [facility] [address] [place] [address] [phone] Leighann Dickey MD [address] [place] [address] Lower urinary tract symptoms (LUTS) (Primary Dx); Fever, unspecified fever cause; Cough in adult patient Social History Tobacco Use Types Packs/Day Years Used Date Smoking Tobacco: Never Smokeless Tobacco: Never Alcohol Use Standard Drinks/Week Comments Never 0 (1 standard drink = 0.6 oz pur e alcohol) Housing Stability Answer Date Recorded What is your housing situation today? I have [employer] crews 10/01/[address] you li ve. Do you have problems with any of the following? None of the above 10/01/2023 Food Insecurity Answer Date Recorded Within the past 12 months, y ou worried that your food would run out before you got money to buy more: Never True 10/01/2023 Within the past 12 months,th e food you bought just didn't last and you didn't have enough money to get more: Never True Transportation Answer Date Recorded In the past 12 months, has l ack of transportation kept you from medical appts, meetings, work or from getting things needed for daily living? No 10/01/2023 Utilities Answer Date Recorded In the past 12 months, has t he electric, gas, oil or water company threatened to shut off services in your home? No 10/01/2023 Depression Answer Date Recorded Patient Health Questionnaire-2 Score 0 10/01/2023 Internet Access Answer Date Recorded Internet Access Q1 No 12/13/2023 Internet Access Q2 I do not want or need it 05/2023 Comments No Sex and Gender Information Value Date Recorded Sex Assigned at Female 02/09/2022 10:17 AM EDT Legal Sex Female 10:17 AM EDT Gender Identity Female 02/09/2022 10:17 AM EDT Sexual Orientation Straight 08/02/2023 11 :45 PM EDT documented as of this encounter Last Filed Vital Signs Vital Sign Reading Time Taken Comments Blood Pressure 130/84 08/07/2024 1:08 PM EDT Pulse 101 08/07/2024 1:08 PM EDT Temperature 36.8 ??C (98.3 ??F) 08/07/2024 1:08 PM ED T Respiratory Rate 16 08/07/2024 1:08 PM EDT Oxygen Saturation 99% 08/07/2024 1:08 PM EDT Inhaled Oxygen Concentration - - Weight 53.5 kg (118 lb) 08/07/2024 1:08 PM EDT Height - - Body Mass Index 22.3 03/15/2024 10:09 AM EST documented in this encounter Progress Notes * Leighann Dickey MD - 08/07/2024 1:40 PM EDT SUBJECTIVE: Nedra Walker is a 29 y.o. year old female who presents for [facility]/ch[facility] . Denies recent illness, injury, or hospitalization. Acute Concerns: Patient has fever, chills, lower abdominal pain and nausea for the past 2 days after she reportedlypassed kidney stone. She is having back pain with radiation to the lower abdomen for the past 2 weeks and was told to have a kidney stone. She does not have vaginal discharge, sore throat, cough, shortness of breath. LMP 07/30/2024 Social History Social History Narrative Lives on 1st floor apartment with parents and 10 yo daughter. Currently unemployed, looking for a job. She dropped HS in 11th grade, hasn't taken GED. Patient Active Problem List Diagnosis Mood disorder (CMS/HCC) UTI symptoms Allergy to amoxicillin Neck pain on left side Scoliosis Iron deficiency Encounter for cervical Pap smear with pelvic exam No family history on file. Review of Systems Constitutional: Positive for chills and fever. Negative for fatigue. HENT: Negative for congestion, ear pain, nosebleeds, rhinorrhea, sinus pressure, sore throat and trouble swallowing. Eyes: Negative for pain and discharge. Respiratory: Negative for cough, chest tightness and shortness of breath. Cardiovascular: Negative for chest pain, palpitations and leg swelling. Gastrointestinal: Positive for nausea. Negative for abdominal pain, blood in stool, constipation and diarrhea. Endocrine: Negative for polydipsia and polyuria. Genitourinary: Negative for dysuria, frequency, genital sores, pelvic pain and vaginal discharge. Musculoskeletal: Negative for back pain and neck pain. Skin: Negative for rash. Allergic/Immunologic: Negative for environmental allergies. Neurological: Negative for dizziness, seizures, weakness, light-headedness and headaches. Hematological: Negative for adenopathy. Psychiatric/Behavioral: Negative for agitation, behavioral problems, self-injury and suicidal ideas. OBJECTIVE: Vitals: 08/07/24 1308 BP: 130/84 Pulse: 101 Resp: 16 Temp: 98.3 ??F (36.8 ??C) SpO2: 99% Physical Exam HENT: Right Ear: Tympanic membrane and ear canal normal. Left Ear: Tympanic membrane and ear canal normal. Mouth/Throat: Mouth: Mucous membranes are moist. Pharynx: No oropharyngeal exudate or posterior oropharyngeal erythema. Eyes: Pupils: Pupils are equal, round, and reactive to light. Cardiovascular: Rate and Rhythm: Regular rhythm. Pulses: Normal pulses. Heart sounds: Normal heart sounds. No murmur heard. Pulmonary: Breath sounds: Normal breath sounds. Abdominal: General: Bowel sounds are normal. Palpations: Abdomen is soft. Tenderness: There is no abdominal tenderness. Musculoskeletal: General: Normal range of motion. Cervical back: Neck supple. Skin: General: Skin is warm. Neurological: General: No focal deficit present. Mental Status: She is alert and oriented to person, place, and time. Psychiatric: Mood and Affect: Mood normal. Behavior: Behavior normal. Office Visit on 08/07/2024 Component Date Value Ref Range Status Influenza A 08/07/2024 Negative Negative, Indeterminate Final Influenza B 08/07/2024 Negative Negative, Indeterminate Final Rapid COVID Ag 08/07/2024 Negative Final Color, UA 08/07/2024 Yellow Final Clarity, UA 08/07/2024 Cloudy Final Glucose, UA 08/07/2024 Negative Final Bilirubin, UA 08/07/2024 Moderate Final Ketones, UA 08/07/2024 Positive Final 160mg Spec Grav, UA 08/07/2024 1.030 Final Blood, UA 08/07/2024 Negative Negative, None Detected Final pH, UA 08/07/2024 6.0 Final Protein, UA 08/07/2024 2+ 125++ Final 100mg Urobilinogen, UA 08/07/2024 0.2 Final Leukocytes, UA 08/07/2024 Few 15 (A) Negative, Rare, Trace Final Nitrite, UA 08/07/2024 Negative Negative, None Detected Final Appearance, UA 08/07/2024 Gross Final Preg Test, Ur 08/07/2024 Negative Negative, Indeterminate, None Detected, Invalid, Specimen unsatisfactory for evaluation, Weakly Positive Final Problem List Items Addressed This Visit None Visit Diagnoses Lower urinary tract symptoms (LUTS) - Primary Secondary to UTI status post kidney stones. Bactrim x 5 days, increase water intake, cranberry juice Follow-up urine culture results Fever, unspecified fever cause Dad mild vaginal discharge, order culture for Staph Aureus. T take tylenol as needed for fever, if symptoms do not resolve, she should go immediately to the ED Relevant Orders Culture, Aerobic Bacteria Cough in adult patient Relevant Orders Influenza A (ID NOW Rapid Molecular) (Completed) Influenza B (ID NOW Rapid Molecular) (Completed) POCT Rapid COVID Ag (Completed) POCT urinalysis dipstick manually resulted (Completed) POCT , urine manually resulted (Completed) Follow Up: Current Outpatient Medications on File Prior to Visit Medication Sig Dispense Refill norgestimate-ethinyl estradiol (Tri-Linyah) 0.18/0.215/0.25 MG-35 MCG tablet Take 1 tablet by mouthOnce per day. 90 tablet 3 [DISCONTINUED] clotrimazole (Lotrimin) 1 % vaginal cream INSERT 1 APPLICATORFUL VAGINALLY EVERY DAYAT BEDTIME FOR 7 DAYS 45 g 0 No current facility-administered medications on file prior to visit. documented in this encounter Plan of Treatment Upcoming Encounters Date Type Department Care Team (Late st Contact Info) Description 10/02/2024 2:00 PM EDT Office Visit [facility] [address] [place] [address] [place], [employer] SCI[employer] [address] [place], [place] [phone] Scheduled Orders Name Type Priority Associated Diagnoses Orde r Schedule Culture, Aerobic Bacteria Microbiology Routine Fever, unspecified fever cause Expected: 08/07/2024 (Approximate), Expires: 08/07/2025 Culture, Urine, Routine Microbiology Routine Lower urinary tract symptoms (LUTS) Expected: 08/07/2024 (Approximate), Expires: 08/07/2025 documented as of this encounter Procedures Procedure Name Priority Date/Time Associated Diagnosis Comments POCT URINALYSIS DIPSTICK Routine 08/07/2024 2:06 PM EDT Cough in adult patient POCT , URINE Routine 08/07/2024 2:05 PM EDT Cough in adult patient POCT INFLUENZA A (ID NOW RAPID MOLECULAR) Routine 08/07/2024 1:17 PM EDT Cough in adult patient POCT INFLUENZA B (ID NOW RAPID MOLECULAR) Routine 08/07/2024 1:16 PM EDT Cough in adult patient POCT RAPID COVID ANTIGEN Routine 08/07/2024 1:16 PM EDT Cough in adult patient documented in this encounter Results * (ABNORMAL) POCT urinalysis dipstick manually resulted (08/07/2024 2:06 PM EDT) Color, UA Yellow Clarity, UA Cloudy Glucose, UA Negative Bilirubin, UA Moderate Ketones, UA Positive Comment:160mg Spec Grav, UA 1.030 Blood, UA Negative Negative, None Detected pH, UA 6.0 Protein, UA 2+ 125++ Comment:100mg Urobilinogen, UA 0.2 Leukocytes, UA Few 15(A) Negative, Rare, Trace Nitrite, UA Negative Negative, None Detected Appearance, UA Gross Urine 08/07/2024 2:06 PM EDT Result [facility] Leighann Dickey MD POINT OF CARE TEST ENTER /EDIT ORDERABLES Final Result * POCT , urine manually resulted (08/07/2024 2:05 PM EDT) [facility] [address] Preg Test, Ur Negative Negative, Indeterminate, None Detected, Invalid, Specimen unsatisfactory for evaluation, Weakly Positive Urine 08/07/2024 2:05 PM EDT Result [facility] Leighann Dickey MD POINT OF CARE TEST ENTER /EDIT ORDERABLES Final Result * Influenza A (ID NOW Rapid Molecular) (08/07/2024 1:17 PM EDT) [facility] [address] Influenza A Negative Negative, Indeterminate [facility] Swab 08/07/2024 1:17 PM EDT Result [facility] Leighann Dickey MD POINT OF CARE TEST ENTER /EDIT ORDERABLES Final Result [facility] [address] [place] [phone] * POCT Rapid COVID Ag (08/07/2024 1:16 PM EDT) [facility] [address] Rapid COVID Ag Negative Swab 08/07/2024 1:16 PM EDT Result [facility] Leighann Dickey MD POINT OF CARE TEST ENTER /EDIT ORDERABLES Final Result * Influenza B (ID NOW Rapid Molecular) (08/07/2024 1:16 PM EDT) [facility] [address] Influenza B Negative Negative, Indeterminate [facility] Swab 08/07/2024 1:16 PM EDT Leighann Dickey MD POINT OF CARE TEST ENTER /EDIT ORDERABLES Final Result [facility] [address] [place] [address] [phone] documented in this encounter Visit Diagnoses Diagnosis Lower urinary tract symptoms (LUTS)- Primary Fever, unspecified fever cause Cough in adult patient documented in this encounter Care Teams Protozoologist Relationship Specialty Start Date End Date Leighann Dickey MD [address] [place] [phone] PCP - General Internal Medicine 10/01/23 documented as of this encounter
--- OUTSIDE RECORDS SUMMARY | 2024-08-07 18:50 | XMS_ITS | Clinical Summary ---
Author Organization [employer] Address [address] [facility] 7[address] [place] [address] Care Team Providers Care Infection Prevention Coordinator Name Role Phone Leighann Dickey MD Primary Care Provider + Allergies Active Allergy Reactions Criticality Noted Date Comments Amoxicillin Itching,Rash Low 07/19/2023 Medications norgestimate- ethinyl estradiol (Tri-Linyah) 0.18/0.215/0. 25 MG-35 MCG tablet Take 1 tablet by mouth Once per day. 90 tablet 3 03/15/20 24 Active sulfamethoxaz ole-trimethop rim (Bactrim DS) 800-160 MG tablet Take 1 tablet by mouth 2 times daily for 5 days. 10 tablet 08/08/19 25 2024 Active clotrimazole (Lotrimin) 1 % vaginal cream Insert 1 applicator into the vagina in the evening for 7 days. 45 g 08/08/19 25 2024 Active clotrimazole (Lotrimin) 1 % vaginal cream INSERT 1 APPLICATORFUL VAGINALLY EVERY DAY AT BEDTIME FOR 7 DAYS 45 g 08/05/19 24 2024 Discontinued(R eorder (will not trigger notification to Pharmacy)) Active Problems Problem Noted Date Diagnosed Date Encounter for cervical Pap smear with pelvic exa m 03/15/2024 Assessment & Plan (03/15/2024 10:38 AM EST): Pelvic exam today wnl FU pap smear results/HPV/STI testing and will call back PRN positive results or FU in 3 months Pt feels safe at home no concern for DV/STDs Counseled regarding STI prevention If today's pap smear/co testing is normal next one will be due in 3 years. Pt declined Influenza, TDAP, and Covid vaccination today, advised to complete at earliest convenience. Neck pain on left side 10/01/2023 Assessment & Plan (10/01/2023 10:00 AM EDT): Seems to be cervical spasm Take tylenol bid x 2w Apply dry heat to affected area + Diclofenac gel bid Order Xrays and fu with me in 6-8w Scoliosis 10/01/2023 Assessment & Plan (11/26/2023 9:26 AM EDT): Not significant for intervention, I discussed with her that she may have worsening of back pain. Refer to PT for strengthening of back muscles. Follow up in 3 months. Assessment & Plan (10/01/2023 10:01 AM EDT): I don't see significant scoliosis on PE Order Xrays and fu at next appt. Iron deficiency 10/01/2023 Assessment & Plan (03/15/2024 10:38 AM EST): Hemoglobin remains stable, complete one more month of iron pills and follow up in one year. Assessment & Plan (11/26/2023 9:27 AM EDT): Reminded to be compliant with iron pill. Will check hemoglobin at next visit. Assessment & Plan (10/01/2023 10:01 AM EDT): Sp iron rx for few months last year. Order labs and fu with me in 6-8w. UTI symptoms 08/02/2023 Assessment & Plan (08/02/2023 3:15 PM EDT): She has a partially treated UTI and most likely vaginal candidiasis form recent abs. Rx Bactrim DS x 5d, I asked her to call if she doesn't tolerate abs. Allergy to PCN entered in the chart. Rx clotrimazole vaginal cream x 3d. Allergy to amoxicillin 08/02/2023 Assessment & Plan (08/02/2023 3:35 PM EDT): Rx given by urologist recently, had rash. Allergy entered in the chart Mood disorder 06/18/2017 Encounters Date Type Department Care Team Description 08/07/2024 1:40 PM EDT Office Visit [facility] [address] [place] [phone] Leighann Dickey MD Lower urinary tract symptoms (LUTS) (Primary Dx); Fever, unspecified fever cause; Cough in adult patient 06/27/2024 Telephone [facility] [address] [place] [address] [phone] Leighann Dickey MD 06/27/2024 Telephone [facility] [address] [place] [address] [phone] Leighann Dickey MD Lilliam recall 06/23/2024 Population Health Risk Score [facility] () Department [address] [place] [phone] Provider, Population Health Generic from Last 3 Months Immunizations Name Administration Dates Next Due DTaP 07/11/2002, 9,1997,10/10,1997 HPV, Quadrivalent 02/15/2008,11/14/2007,09/12/19 08 Hep B, Adolescent or Pediatric 03/12/1998,1997 Hib (HbOC) 09/10/1998, 8,1997,08/10 IPV 07/11/2002, 8,1997,08/10 Influenza, IIV3, injectable 02/15/2008 Influenza, seasonal, injecta ble, preservative free 01/19/2014 MMR 07/11/2002,09/10/1998 Meningococcal MCV4P [id number]-135 09/29/2010 Tdap 09/29/2010 Varicella 09/12/2007,06/10/1998 Social History Tobacco Use Types Packs/Day Years Used Date Smoking Tobacco: Never Smokeless Tobacco: Never Tobacco Cessation:Counseling Given: Not Answered Alcohol Use Standard Drinks/Week Comments Never 0 (1 standard drink = 0.6 oz pur e alcohol) Housing Stability Answer Date Recorded What is your housing situation today? I have [employer] 10/01/[address] you [...] Orientation Straight 08/02/2023 11 :45 PM EDT Last Filed Vital Signs Vital Sign Reading Time Taken Comments Blood Pressure 130/84 08/07/2024 1:08 PM EDT Pulse 101 08/07/2024 1:08 PM EDT Temperature 36.8 ??C (98.3 ??F) 08/07/2024 1:08 PM ED T Respiratory Rate 16 08/07/2024 1:08 PM EDT Oxygen Saturation 99% 08/07/2024 1:08 PM EDT Inhaled Oxygen Concentration - - Weight 53.5 kg (118 lb) 08/07/2024 1:08 PM EDT Height 154.9 cm (5' 1 ) 03/15/2024 10:09 AM EST Body Mass Index 22.3 03/15/2024 10:09 AM EST Plan of Treatment Upcoming Encounters Date Type Department Care Team (Late st Contact Info) Description 10/02/2024 2:00 PM EDT Office Visit [facility] [address] [place] [address] KonradViolet pratt, MANAGER [facility] C[facility] [address] [place], [place] [phone] Health Maintenance Due Date Last Done Comments Hepatitis B Vaccines (3 of 3 - 3-dose series) 05/07/1998 03/12/1998, 1997, 1997 Alcohol/Substance Use Screening 2009 Family Planning (PISQ) 2012 DTaP/Tdap/Td Vaccines (7 - Td or Tdap) 09/29/2020 09/29/2010, 07/11/2002, 02/10/1999, Additional history exists COVID-19 Vaccine ( season) 2023 Influenza Vaccine (#1) 2023 01/19/2014, 2007 Depression Screening 09/30/2024 10/01/2023, 10/01/19 24 SDOH Screening 09/30/2024 10/01/2023 Tobacco Screening 03/15/2025 03/15/2024 Pap Smear 03/15/2027 03/15/2024 Zoster Vaccines (1 of 2) 06/16/2047 RSV Patients and Patients Aged 60 years or older (1 - 1-dose 75+ series) 2072 HIB Vaccines Completed 09/10/1998, 04/1997, 1997, Additional history exists IPV Vaccines Completed 07/11/2002, 04/1997, 1997, Additional history exists HPV Vaccines Completed 02/15/2008, 07/2007, 09/12/2007 Meningococcal Vaccine Aged Out 09/29/2010 No madison bronson eligible based on patient's age to complete this topic HIV Screening Completed 10/01/2023 Hepatitis C Screening Completed 10/01/2023 Hepatitis A Vaccines Aged Out No long er eligible based on patient's age to complete this topic Pneumococcal Vaccine: Pediatrics (0 to 5 Years) and At-Risk Patients (6 to 49) Years) Aged Out No longer eligible based on patient's age to complete this topic RSV under 20 months Aged Out No longe r eligible based on patient's age to complete this topic Rotavirus Vaccines Aged Out No longer eligible based on patient's age to complete this topic Procedures Procedure Name Priority Date/Time Associated Diagnosis [...] 1:16 PM EDT Cough in adult patient CANCELLED SEROLOGY Routine 08/07/2024 12 :00 AM EDT PAP SMEAR Routine 03/15/2024 10:15 AM EST Encounter for cervical Pap smear with pelvic exam HEPATITIS PANEL, GENERAL Routine 10/01/2023 10:00 AM EDT Iron deficiency HIV 1/2 ANTIGEN/ANTIBODY, FOURTH GENERATION W/RFL Routine 10/01/2023 10:00 AM EDT Iron deficiency from Last 3 Months or Most Recently Relevant to Health Maintenance Results * (ABNORMAL) POCT urinalysis dipstick manually [...] Gross Urine 08/07/2024 2:06 PM EDT Result [facility] Leighann Dickey MD POINT OF CARE TEST ENTER /EDIT ORDERABLES Final Result * POCT , urine manually resulted (08/07/2024 2:05 PM EDT) [facility] Preg Test, Ur Negative Negative, Indeterminate, None Detected, Invalid, Specimen unsatisfactory for evaluation, Weakly Positive Urine 08/07/2024 2:05 PM EDT Leighann Dickey MD POINT OF CARE TEST ENTER /EDIT ORDERABLES Final Result * Influenza A (ID NOW Rapid Molecular) (08/07/2024 1:17 PM EDT) [facility] Influenza A Negative Negative, Indeterminate [facility] Swab 08/07/2024 1:17 PM EDT Result [facility] Leighann Dickey MD POINT OF CARE TEST ENTER /EDIT ORDERABLES Final Result Performing Organization Address City/[facility]/ZIP Co de Phone Number [facility] [address] [place] [phone] * Influenza B (ID NOW Rapid Molecular) (08/07/2024 1:16 PM EDT) [facility] Influenza B Negative Negative, Indeterminate [facility] Swab 08/07/2024 1:16 PM EDT Result [facility] Leighann Dickey MD POINT OF CARE TEST ENTER /EDIT ORDERABLES Final Result Performing Organization Address [facility]/ZIP Co de Phone Number [facility] [address] [place] [phone] * POCT Rapid COVID Ag (08/07/2024 1:16 PM EDT) [facility] Rapid COVID Ag Negative Swab 08/07/2024 1:16 PM EDT Leighann Dickey MD POINT OF CARE TEST ENTER /EDIT ORDERABLES Final Result * Cancelled Serology (08/07/2024 12:00 AM EDT) Cancelled Serology SEE NOTE [facility] Comment:THE FOLLOWING TESTS WERE CANCELLED: ANAEROBIC CULTUREREASON: INCORRECT CONATINER 08/07/2024 08/07/2024 Leighann Dickey MD HISTORICAL/NON ORDERABLE LABS Final Result Performing Organization Address City/State/[facility] Co de Phone Number [facility] [address] [place] [phone] * Pap Smear (03/15/2024 10:15 AM EST) Swab Cervical swab / Unknown 03/15/2024 10:15 AM EST 03/16/2024 8:20 AM EST Narrative [facility] - 03/20/2024 11:39 AM EST ----- ------- Name: Nedra Walker ?Age/Sex: 28/F ? : 1995 Unit#: [id number] ?? Attend Dr: ?Re03/15/24 ?Status: PRE REF ? Location: HO.LNP ?Disch: ? ----- ------- SPEC : [id number] ?RECD: 03/16/24 ? STATUS: ??SOUT ? REQ NUM: [id number] ? NAT: 03/15/245 ? SUBM DR: Leighann Dickey MD ? ENTERED: ??03/16/24 ?SP TYPE: Pap Smr ?OTHR : ? ORDERED: ??Pap Smear ? Interpretation ?? Satisfactory for evaluation. ?? No endocervical cells seen. ?? Negative for intraepithelial lesion or malignancy. ?? Mild inflammation. ?Clinical Information LMP: 03/14/2024 Previous PAP test: Unknown date/findings ? Material Received ?? ThinPrep-Cervical ----- ------- Signed (signature on file) MALOU Casillas ([facility]) 03/20/24 1139 ? ----- ------- ? END OF REPORT ? Leighann Dickey MD LAB CYTOLOGY ORDERABLES Final Result [facility] [address] [place] [phone] * Hepatitis Panel, General (10/01/2023 10:00 AM EDT) Hepatitis A IgM Nonreactive Nonreactive [facility] Comment:IgM antibodies to PORTER V not detected; does not exclude earlyacute or recovered HAV infection. ~Hepatitis B Surface Antibody NONREACTIVE Nonreactive [facility] Comment:Nonreactive: < 8.00 mIU/mL Hepatitis B Core Antibody Nonreactive Nonreactive [facility] Hepatitis C Antibody Nonreactive Nonreactive [facility] Comment:Antibodies to HCV no t detected; does not exclude early acuteHCV infection. Hepatitis B Surface Ag Negative Negative [facility] Blood 10/01/2023 10:0 0 AM EDT 10/01/2023 11:05 AM EDT Leighann Dickey MD LAB BLOOD ORDERABLES Fin al Result Performing Organization Address [facility] Co de Phone Number [facility] [address] [place] [phone] * HIV-1/2 Antigen and Antibodies, Fourth Generation, with Reflexes (10/01/2023 10:00 AM EDT) [facility] HIV AB/AG Nonreactive Nonreactive [facility] Comment:HIV-1 p24 Ag and/or HIV-1/HIV-2 Ab not detected.A test result that is nonreactive does not exclude thepossibility of exposure to or infection with HIV-1 and/orHIV-2. Nonreactive results in this assay for individualswith prior exposure to HIV-1 and/or HIV-2 may be due toantigen and antibody levels that are below the limit ofdetection of this assay.The [employer] HIV Ag/Ab Combo assay result andsupplemental assay results should be interpreted inconjunction with the patient's clinical presentation,history and other laboratory results. If the results areinconsistent with clinical evidence, additional testing issuggested to confirm the result. Blood Venous blood specimen / Unknown 10/01/2023 10:00 AM EDT 10/01/2023 11:05 AM EDT us Leighann Dickey MD LAB BLOOD ORDERABLES Fin al Result Performing Organization Address [facility] Co de Phone Number [facility] [address] [place] [phone] from Last 3 Months or Most Recently Relevant to Health Maintenance Insurance [facility] C3 Care Teams Infection Prevention Coordinator Relationship Specialty Start Date End Date Leighann Dickey MD [address] [place] [phone] PCP - General Internal Medicine 10/01/23
--- OUTSIDE RECORDS SUMMARY | 2024-08-07 18:50 | XMS_ITS | Encounter Summary ---
Author Organization [employer] Address [address] [facility] [address] [place] [address] Care Team Providers Care Waste Baler Name Role Phone Leighann Dickey MD Primary Care Provider + Encounter Details Date Type Department Care Team ([facility] st Contact Info) Description 06/27/2024 Telephone [facility] [address] [place] [phone] Leighann Dickey MD [address] [place], [place] [phone] Social History Tobacco Use Types Packs/Day Years [...] Description 10/02/2024 2:00 PM EDT Office Visit [facility] [address] [place], [place] [phone] PoloViolet FNP [address] [place] [phone] documented as of this encounter Visit Diagnoses Not on filedocumented in this encounter Care Teams Waste Baler Relationship Specialty Start Date End Date Leighann Dickey MD [address] [place] [phone] PCP - General Internal Medicine 10/01/23 documented as of this encounter
--- OUTSIDE RECORDS SUMMARY | 2024-08-07 18:50 | XMS_ITS | Encounter Summary ---
Author Organization [employer] Address [address] [facility] [address] [place] [address] Care Team Providers Care Family Specialist Name Role Phone Leighann Dickey MD Primary Care Provider + Reason for Visit * Reason Onset Date Comments Appointment Request 01/17/2024 Encounter Details Date Type Department Care Team ([facility] Contact Info) Description 01/17/2024 Telephone [facility] [address] [place] [address] Leighann Dickey MD [address] [place] [address] Appointment Request Social History Tobacco Use Types Packs/Day Years [...] PM EDT documented as of this encounter Miscellaneous Notes * Telephone Encounter - Chetan Frankel - 01/17/2024 10:16 AM EDT Tc from patient calling to cancel PAP appt for 01/16 and would like a call back to reschedule documented in this encounter Plan of Treatment Upcoming Encounters Date Type Department Care Team (Late st Contact Info) Description 10/02/2024 2:00 PM EDT Office Visit [facility] [address] [place] [address] SayreViolet FNP [address] [place] [phone] documented as of this encounter Visit Diagnoses Not on filedocumented in this encounter Care Teams Family Specialist Relationship Specialty Start Date End Date Leighann Dickey MD [address] [place] [phone] PCP - General Internal Medicine 10/01/23 documented as of this encounter
== END 2024-08-07 16:09 | disposition home or self-care (01) ==
LOC: HO.HHCLNP 16:08
PROVIDERS: Visit Provider Internal Medicine
DX: R39.9 Unspecified symptoms and signs involving the genitourinary system (principal)
CPT/HCPCS: 36415; 87086

== ENCOUNTER 2024-10-02 15:04 | Outpatient (REF) | payer MEDICAID, SELFPAY ==
[2024-10-02 16:07] LABS: MANUAL DIFF FLAG NO
[2024-10-02 16:13] LABS: Basophils Percent Auto 0.6 % (0-2); Eosinophils Absolute Auto 0.2 X10*3/uL (0.0-0.4); Hematocrit 38.3 % (37.0-47.0); Hemoglobin 12.5 g/dl (12.0-16.0); Imm Gran Abs Auto 0.01 X10*3/uL (0.00-0.03); Imm Gran Pct Auto 0.2 % (0.0-0.4); Lymphocytes Absolute Auto 1.8 X10*3/uL (1.2-4.9); Lymphocytes Percent Auto 33.3 % (20-40); Mean Corpuscular HGB Conc 32.6 g/dl (31.0-35.0); Mean Corpuscular Hemoglobin 27.5 pg (27.0-33.0); Mean Corpuscular Volume 84.2 fL (80.0-98.0); Mean Platelet Volume 11.1 fL (9.4-12.3); Monocytes Absolute Auto 0.6 X10*3/uL (0.1-1.2); Monocytes Percent Auto 10.4 % (2-11); Neutrophils Absolute Auto 2.8 x10*3/uL (2.0-8.3); Neutrophils Percent Auto 52.5 % (45-73); Platelet Count 283 X10*3/uL (160-400); Red Blood Count 4.55 X10*6/uL (4.20-5.50); Red Cell Distribution Width 13.6 % (11.0-16.0); White Blood Count 5.3 X10*3/uL (4.8-10.8)
[2024-10-02 16:47] LABS: Cholesterol 271 mg/dL (<200); HDL Cholesterol 89 mg/dL (>40); LDL Cholesterol Calculated 155 mg/dL (<100); Triglycerides 135 mg/dL (<150)
[2024-10-02 17:01] LABS: Ferritin 6 ng/mL (10-122)
== END 2024-10-02 15:05 | disposition home or self-care (01) ==
LOC: HO.HHCL 15:04
PROVIDERS: PCP Internal Medicine; Visit Provider Registered Nurse
DX: E61.1 Iron deficiency (principal); Z00.00 Encounter for general adult medical examination without abnormal findings
CPT/HCPCS: 36415; 80061; 82728; 85025

== ENCOUNTER 2025-03-29 13:45 | Outpatient (REF) | payer MEDICAID, SELFPAY ==
--- OUTSIDE RECORDS SUMMARY | 2025-03-29 12:15 | XMS_ITS | Encounter Summary ---
Author Organization [employer] Address [address] [address] [address] [place] [address] Care Team Providers Care Radial Saw Operator Name Role Phone Leighann Dickey MD Primary Care Provider + Encounter Details Date Type Department Care Team ([facility] st Contact Info) Description 03/29/2025 12:15 PM EST Office Visit [facility] MED[facility]INE [address] [place] [address] Leighann Dickey MD [address] [place] [address] Adjustment disorder with depressed mood (Primary Dx); Weakness; Iron deficiency Social History Tobacco Use Types Packs/Day Years Used Date Smoking Tobacco: Never Smokeless Tobacco: Never Alcohol Use Standard Drinks/Week Comments Never 0 (1 standard drink = 0.6 oz pur e alcohol) Depression Answer Date Recorded Patient Health Questionnaire-9 Score 8 03/29/2025 Patient Health Questionnaire-9 Score 8 03/29/2025 Last PHQ-9: Questionnaire Data Not on file 1 05/30/2024 Housing Stability Answer Date Recorded What is [...] Answer Date Recorded Patient Health Questionnaire-2 Score 3 03/29/2025 Internet Access Answer Date Recorded Internet Access Q1 Yes 10/01/2024 Internet Access Q2 Not on file 10/01/2024 Comments No Sex and Gender Information Value Date Recorded Sex Assigned at Female 02/09/2022 10:17 AM EDT Legal Sex Female 10:17 AM EDT Gender Identity Female 02/09/2022 10:17 AM EDT Sexual Orientation Straight 08/02/2023 11 :45 PM EDT documented as of this encounter Last Filed Vital Signs Vital Sign Reading Time Taken Comments Blood Pressure 122/78 03/29/2025 12:28 PM EST Pulse 95 03/29/2025 12:28 PM EST Temperature - - Respiratory Rate 15 03/29/2025 12:28 PM EST Oxygen Saturation 97% 03/29/2025 12:28 PM EST Inhaled Oxygen Concentration - - Weight 54.5 kg (120 lb 3.2 oz) 03/29/2025 12:28 PM EST Height 154.9 cm (5' 1 ) 03/29/2025 12:28 PM EST Body Mass Index 22.71 03/29/2025 12:28 PM EST documented in this encounter Functional Status * Over the past 2 weeks, how often have you been bothered by any of the following problems? Question Answer Date of Assessment Author Patient Health Questionnaire-2 Score 3 03/12 12:30 PM EST Janel Gandara MA * Little interest or pleasure in doing things Answer Date of Assessment Author More than half the days 03/29/2025 12:30 PM Janel Woo MA * Feeling down, depressed, or hopeless Answer Date of Assessment Author Several days 03/29/2025 12:30 PM EST Radha Gandara MA * Trouble falling or staying asleep, or sleeping too much Answer Date of Assessment Author Several days 03/29/2025 12:30 PM Radha Woo MA * Feeling tired or having little energy Answer Date of Assessment Author More than half the days 03/29/2025 12:30 PM Janel Woo MA * Poor appetite or overeating Answer Date of Assessment Author Several days 03/29/2025 12:30 PM Radha Woo MA * Feeling bad about yourself - or that you are a failure or have let yourself or your family down Answer Date of Assessment Author Several days 03/29/2025 12:30 PM Radha Woo MA * Trouble concentrating on things, such as reading the newspaper or watching television Answer Date of Assessment Author Not at all 03/29/2025 12:30 PM Radha Woo MA * Moving or speaking so slowly that other people could have noticed? Or the opposite - being so fidgety or restless that you have been moving around a lot more than usual. Answer Date of Assessment Author Not at all 03/29/2025 12:30 PM Radha Woo MA * Thoughts that you would be better off or hurting yourself in some way Answer Date of Assessment Author Not at all 03/29/2025 12:30 PM Radha Woo MA * Patient Health Questionnaire-9 Score Answer Date of Assessment Author 8 03/29/2025 12:30 PM Radha Woo MA * Over the last 2 weeks, how often have you been bothered by any of the following problems? Question Answer Date of Assessment Author Feeling nervous, anxious, or on edge 1 03/12 12:30 PM Janel Woo MA Not being able to stop or co ntrol worrying 0 03/29/2025 12:30 PM Janel Woo MA Worrying too much about diff erent things 1 03/29/2025 12:30 PM Janel Woo MA Trouble relaxing 0 03/29/2025 12:30 PM Janel Woo MA Being so restless that it is hard to sit still 0 03/29/2025 12:30 PM Janel Woo MA Becoming easily annoyed or irritable 0 03/12 12:30 PM Janel Woo MA Feeling afraid as if somethi ng awful might happen 0 03/29/2025 12:30 PM EST Janel Gandara MA ALONSO-7 Total Score 2 03/29/2025 12:30 PM EST Janel Gandara MA documented as of this encounter Plan of Treatment Upcoming Encounters Date Type Department Care Team (Late st Contact Info) Description 07/03/2025 10:30 AM EDT Office Visit [facility] MEDICINE [address] [place] [address] Leighann Dickey MD [address] [place] [address] Scheduled Orders Name Type Priority Associated Diagnoses Orde r Schedule HIV-1/2 Antigen and Antibodies, Fourth Generation, with Reflexes Lab Routine Weakness Iron deficiency Expected: 03/29/2025 (Approximate), Expires: 03/29/2026 LEIGHANN Screen,IFA, with Reflex to Titer and Pattern Lab Routine Weakness Expected: 03/29/2025 (Approximate), Expires: 03/29/2026 Syphilis Screen Lab Routine Weakness Expected: 03/29/2025 (Approximate), Expires: 03/29/2026 Hepatitis Panel, General Lab Routine Weakness Iron deficiency Expected: 03/29/2025 (Approximate), Expires: 03/29/2026 Lyme Disease Ab with Reflex to Blot (IgG, IgM) Lab Routine Weakness Expected: 03/29/2025, Expires: 03/29/2026 documented as of this encounter Procedures Procedure Name Priority Date/Time Associated Diagnosis Comments TSH W/REFLEX TO FT4 Routine 03/29/2025 1 :49 PM EST Weakness Iron deficiency CBC WITH AUTO DIFFERENTIAL Routine 03/29/2025 1:49 PM EST Weakness Iron deficiency LD Routine 03/29/2025 1:49 PM EST Weakness FERRITIN Routine 03/29/2025 1:49 PM EST Weakness Iron deficiency COMPREHENSIVE METABOLIC PANEL Routine 03/29/2025 1:49 PM EST Weakness Iron deficiency POCT GLUCOSE Routine 03/29/2025 1:04 PM EST Iron deficiency Weakness POCT HEMOGLOBIN Routine 03/29/2025 1:04 PM EST Iron deficiency Weakness documented in this encounter Results * (ABNORMAL) Ferritin (03/29/2025 1:49 PM EST) Ferritin 8(L) 10 - 122 ng/mL [facility] Blood Venous blood specimen / Unknown 03/29/2025 1:49 PM EST 03/29/2025 4:00 PM EST us Leighann Dickey MD LAB BLOOD ORDERABLES Fin al Result [facility] [address] [place] [phone] * (ABNORMAL) Comprehensive Metabolic Panel (03/29/2025 1:49 PM EST) Sodium 141 135 - 145 mmol/L [facility] Potassium 3.5 3.3 - 5.1 mmol/L [facility] Chloride 109(H) 96 - 108 mmol/L [facility] Carbon Dioxide 24 22 - 29 mmol/L [facility] Anion Gap 12 12 - 20 [facility] Urea Nitrogen (BUN) 8(L) 9 - 16 mg/dL [facility] Creatinine, Serum 0.68 0.5 - 1.4 mg/dL [facility] Estimated Glomerular Filt Rate >60 [facility] Comment:Chronic Kidney Disea se: Estimated GFR < 60 mL/min/1.76g0[place]awdw Kidney Disease: Estimated GFR < 15 mL/min/1.73m2 Glucose 77 60 - 115 mg/dL [facility] Calcium 9.2 8.4 - 10.2 mg/dL [facility] Bilirubin, Total 0.3 0.0 - 1.0 mg/dL [facility] Aspartate Amino Transferase 20 5 - 31 U/L [facility] Alanine Aminotransferase 11 0 - 31 U/L [facility] Total Protein 7.4 6.5 - 8.0 g/dL [facility] Albumin Level 4.6 3.5 - 5.0 g/dL [facility] Alkaline Phosphatase 57 39 - 117 U/L [facility] Blood Venous blood specimen / Unknown 03/29/2025 1:49 PM EST 03/29/2025 4:00 PM EST Leighann Dickey MD LAB BLOOD ORDERABLES Fin al Result Performing Organization Address [facility]/ZIP Co de Phone Number [facility] [address] [place] [phone] * TSH with Reflex to Free T4 (03/29/2025 1:49 PM EST) TSH reflex Free T4 1.73 0.32 - 4.0 uIU/mL [facility] Blood 03/29/2025 1:49 PM EST 03/29/2025 4:00 PM EST Leighann Dickey MD LAB BLOOD ORDERABLES Fin al Result Performing Organization Address [facility] [place] Co de Phone Number [facility] [address] [place] [phone] * (ABNORMAL) Lactate Dehydrogenase (LD) (03/29/2025 1:49 PM EST) Lactate Dehydrogenase 222(H) 122 - 220 U/L [facility] Blood Venous blood specimen / Unknown 03/29/2025 1:49 PM EST 03/29/2025 4:00 PM EST Leighann Dickey MD LAB BLOOD ORDERABLES Fin al Result Performing Organization Address [facility] Co de Phone Number [facility] [address] [place] [phone] * (ABNORMAL) CBC auto differential (03/29/2025 1:49 PM EST) White Blood Count 5.3 4.8 - 10.8 X10*3/uL [facility] Red Blood Count 4.65 4.20 - 5.50 X10*6/uL [facility] Hemoglobin 12.7 12.0 - 16.0 g/dl [facility] Hematocrit 39.9 37.0 - 47.0 % [facility] Mean Corpuscular Volume 85.8 80.0 - 98.0 fL [facility] Mean Corpuscular Hemoglobin 27.3 27.0 - 33.0 pg [facility] Mean Corpuscular HGB Conc 31.8 31.0 - 35.0 g/dl [facility] Red Cell Distribution Width 13.3 11.0 - 16.0 % [facility] Platelet Count 272 160 - 400 X10*3/uL [facility] Mean Platelet Volume 11.9 9.4 - 12.3 fL [facility] Neutrophils Percent Auto 46.1 45 - 73 % [facility] Imm Gran Pct Auto 0.2 0.0 - 0.4 % [facility] Lymphocytes Percent Auto 39.8 20 - 40 % [facility] Monocytes Percent Auto 8.9 2 - 11 % [facility] Eosinophils Percent Auto 4.2(H) 0 - 4 % [facility] Basophils Percent Auto 0.8 0 - 2 % [facility] NRBC Pct Auto 0.0 0.0 - 0.2 /100WBC [facility] Neutrophils Absolute Auto 2.4 2.0 - 8.3 x10*3/uL [facility] Imm Gran Abs Auto 0.01 0.00 - 0.03 X10*3/uL [facility] Lymphocytes Absolute Auto 2.1 1.2 - 4.9 X10*3/uL [facility] Monocytes Absolute Auto 0.5 0.1 - 1.2 X10*3/uL [facility] Eosinophils Absolute Auto 0.2 0.0 - 0.4 X10*3/uL [facility] Basophils Absolute Auto 0.0 0.0 - 0.2 X10*3/uL [facility] NRBC Abs Auto 0.000 0.0 - 0.012 X10*3/uL [facility] Blood Venous blood specimen / Unknown 03/29/2025 1:49 PM EST 03/29/2025 4:00 PM EST Leighann Dickey MD LAB BLOOD ORDERABLES Fin al Result [facility] [address] [place] [phone] * POCT Hemoglobin (03/29/2025 1:04 PM EST) Hemoglobin 13.0 12.0 - 15.0 QC Media Lot # [id number] Lot# Expiration Date ,597,286 Blood 03/29/2025 1:04 PM EST Leighann Dickey MD POINT OF CARE TEST ENTER /EDIT ORDERABLES Final Result * POCT Glucose (03/29/2025 1:04 PM EST) Glucose Blood, POC 93 60 - 200 mg/dL Comment:fasting QC Media Lot # [id number] Lot# Expiration Date ,356 Blood Capillary blood specimen / Unknown 03/29/2025 1:04 PM EST Leighann Dickey MD POINT OF CARE TEST ENTER /EDIT ORDERABLES Final Result documented in this encounter Visit Diagnoses Diagnosis Adjustment disorder with depressed mood- Primary Weakness Other malaise and fatigue Iron deficiency Disorders of iron metabolism documented in this encounter Additional Health Concerns Assessment Noted Time PHQ-9 Depression Total Score: 8 03/29/20 25 12:30 PM EST documented as of this encounter Care Teams Radial Saw Operator Relationship Specialty Start Date End Date Leighann Dickey MD [address] [place] [phone] PCP - General Internal Medicine 10/01/23 documented as of this encounter
[2025-03-29 16:07] LABS: MANUAL DIFF FLAG NO
[2025-03-29 16:14] LABS: Hematocrit 39.9 % (37.0-47.0); Hemoglobin 12.7 g/dl (12.0-16.0); Imm Gran Abs Auto 0.01 X10*3/uL (0.00-0.03); Imm Gran Pct Auto 0.2 % (0.0-0.4); Lymphocytes Absolute Auto 2.1 X10*3/uL (1.2-4.9); Mean Corpuscular HGB Conc 31.8 g/dl (31.0-35.0); Mean Corpuscular Hemoglobin 27.3 pg (27.0-33.0); Mean Corpuscular Volume 85.8 fL (80.0-98.0); NRBC Abs Auto 0.000 X10*3/uL (0.0-0.012); NRBC Pct Auto 0.0 /100WBC (0.0-0.2); Platelet Count 272 X10*3/uL (160-400); Red Blood Count 4.65 X10*6/uL (4.20-5.50); White Blood Count 5.3 X10*3/uL (4.8-10.8)
[2025-03-29 16:51] LABS: Alanine Aminotransferase 11 U/L (0-31); Albumin Level 4.6 g/dL (3.5-5.0); Alkaline Phosphatase 57 U/L (39-117); Anion Gap 12 (12-20); Aspartate Amino Transferase 20 U/L (5-31); Blood Urea Nitrogen 8 mg/dL (9-16); Calcium 9.2 mg/dL (8.4-10.2); Carbon Dioxide 24 mmol/L (22-29); Chloride 109 mmol/L (96-108); Estimated Glomerular Filt Rate > 60; Potassium 3.5 mmol/L (3.3-5.1); Sodium 141 mmol/L (135-145); Total Protein 7.4 g/dL (6.5-8.0)
[2025-03-29 16:59] LABS: Ferritin 8 ng/mL (10-122)
--- OUTSIDE RECORDS SUMMARY | 2025-03-29 17:58 | XMS_ITS | Encounter Summary ---
Author Organization [employer] Address [address] [place] [address] Care Team Providers Care Space And Missile Defense Operations Name Role Phone Leighann Dickey MD Primary Care Provider + Encounter Details Date Type Department Care Team ([facility] st Contact Info) Description 06/27/2024 Telephone [facility] MEDICINE [address] [place] [address] Leighann Dickey MD [address] [place] [address] Social History Tobacco Use Types Packs/Day Years [...] Description 07/03/2025 10:30 AM EDT Office Visit [facility] [address] [place], [place] [phone] Leighann Dickey MD [address] [place] [phone] documented as of this encounter Visit Diagnoses Not on filedocumented in this encounter Care Teams Space [employer] Missile Defense Operations Relationship Specialty Start Date End Date Leighann Dickey MD [address] [place] [address] [phone] PCP - General Internal Medicine 10/01/23 documented as of this encounter
--- OUTSIDE RECORDS SUMMARY | 2025-03-29 17:58 | XMS_ITS | Encounter Summary ---
Author Organization [employer] Address [address] [place] [address] [address] [place] [address] Care Team Providers Care Concert Pianist Name Role Phone Leighann Dickey MD Primary Care Provider + Encounter Details Date Type Department Care Team (Late Contact Info) Description 11/13/2022 [facility] Information Management [address] [place] [address] Nadja Santos FNP [address] [place] [address] Social History Tobacco Use Types Packs/Day Years [...] Department Care Team (Late Contact Info) Description 07/03/2025 10:30 AM EDT Office Visit [facility] MEDICINE [address] [place] [address] Leighann Dickey MD [address] [place] [address] documented as of this encounter Visit Diagnoses Not on filedocumented in this encounter Care Teams Concert Pianist Relationship Specialty Start Date End Date Leighann Dickey MD [address] [place] [phone] PCP - General Internal Medicine 10/01/23 documented as of this encounter
--- OUTSIDE RECORDS SUMMARY | 2025-03-29 17:58 | XMS_ITS | Encounter Summary ---
Author Organization [employer] Address [address] [facility] [address]t [place] [address] Care Team Providers Care Services Mgr Name Role Phone Leighann Dickey MD Primary Care Provider + Reason for Visit * Reason Comments Med Refill Encounter Details Date Type Department Care Team (Late st Contact Info) Description 07/13/2023 Refill [facility] [address] [place] [address] Nadja Santos FNP [address] [place] [address] Social History Tobacco Use Types Packs/Day Years [...] Description 07/03/2025 10:30 AM EDT Office Visit [facility] [address] [place] [address] Leighann Dickey MD [address] [place] [address] documented as of this encounter Visit Diagnoses Not on filedocumented in this encounter Care Teams Services Mgr Relationship Specialty Start Date End Date Leighann Dickey MD [address] [place] [phone] PCP - General Internal Medicine 10/01/23 documented as of this encounter
--- OUTSIDE RECORDS SUMMARY | 2025-03-29 17:58 | XMS_ITS | Encounter Summary ---
Author Organization [employer] Address [address] [place] [address] Care Team Providers Care Production Clerks Supervisor Name Role Phone Leighann Dickey MD Primary Care Provider + Encounter Details Date Type Department Care Team (Latest Contact Info) Description 03/29/2025 Travel Social History Tobacco Use Types Packs/Day Years [...] PM EDT documented as of this encounter Functional Status * Over the past 2 weeks, how often have you been bothered by any of the following problems? Question Answer Date of Assessment Author Patient Health Questionnaire-2 Score 3 03/12 12:30 PM Janel Woo MA * Little interest or pleasure in doing things Answer Date of Assessment Author More than half the days 03/29/2025 12:30 PM Janel Woo MA * Feeling down, depressed, or hopeless Answer Date of Assessment Author Several days 03/29/2025 12:30 PM Radha Woo MA * Trouble falling or staying asleep, [...] awful might happen 0 03/29/2025 12:30 PM Janel Woo MA ALONSO-7 Total Score 2 03/29/2025 12:30 PM Janel Woo MA documented as of this encounter Plan of Treatment Upcoming Encounters Date Type Department Care Team (Late st Contact Info) Description 07/03/2025 10:30 AM EDT Office Visit [facility] MED[facility]INE [address] [place] [address] Leighann Dickey MD [address] [place] [address] documented as of this encounter Visit Diagnoses Not on filedocumented in this encounter Additional Health Concerns Assessment Noted Time PHQ-9 Depression Total Score: 8 03/29/20 25 12:30 PM EST documented as of this encounter Care Teams Production Clerks Supervisor Relationship Specialty Start Date End Date Leighann Dickey MD [address] [place] [phone] PCP - General Internal Medicine 10/01/23 documented as of this encounter
--- OUTSIDE RECORDS SUMMARY | 2025-03-29 17:58 | XMS_ITS | Clinical Summary ---
Author Organization [employer] Address [address] [place] [address] 7[address] [place] [address] Care Team Providers Care Keno Clerk Name Role Phone Leighann Dickey MD Primary Care Provider + Allergies Active Allergy Reactions Criticality Noted Date Comments Amoxicillin Itching,Rash Low 07/19/2023 Medications norgestimate-ethi nyl estradiol (Tri-Linyah) 0.18/0.215/0.25 MG-35 MCG tabletIndications :Encounter for other contraceptive management Take 1 tablet by mouth Once per day. 90 tablet 3 03/13/2025 3:57 PM EST 10/03/19 25 Active ferrous gluconate (Fergon) 324 (38 Fe) MG tablet Take 1 tablet (324 mg) by mouth with breakfast. 90 tablet 03/29/20 25 026 Active ferrous sulfate (Fe Tabs) 325 (65 Fe) MG EC tablet Take 1 tablet (325 mg) by mouth with breakfast. Do not crush, chew, or split. 90 tablet 10/04/19 25 025 Discontinued Active Problems Problem Noted Date Diagnosed Date Weakness 03/29/2025 Encounter for cervical Pap smear with pelvic [...] Encounters Date Type Department Care Team Description 03/29/2025 12:15 PM EST Office Visit [facility] [address] [place] [phone] Leighann Dickey MD Adjustment disorder with depressed mood (Primary Dx); Weakness; Iron deficiency 03/29/2025 Travel 03/28/2025 Telephone [facility] [address] [place], [place] [phone] Leighann Dickey MD Chart Prep 03/26/2025 Telephone [facility] [address] [place] [address] Leighann Dickey MD Nurse Triage from Last 3 Months Immunizations Immunization Administration Dates Next Due DTaP 07/11/2002, 9,1997,10/10,1997 HPV, Quadrivalent 02/15/2008,11/14/2007,09/12/19 08 Hep B, Adolescent or Pediatric 03/12/1998,1997 Hib (HbO) 09/10/1998, 8,1997,08/10 IPV 07/11/2002, 8,1997,08/10 Influenza, IIV3, [...] Pulse 95 03/29/2025 12:28 PM EST Temperature 36.9 C (98.5 F) 10/02/2024 2:01 PM EDT Respiratory Rate 15 03/29/2025 12:28 PM EST Oxygen Saturation 97% 03/29/2025 12:28 PM EST Inhaled Oxygen Concentration - - Weight 54.5 kg (120 lb 3.2 oz) 03/29/2025 12:28 PM EST Height 154.9 cm (5' 1 ) 03/29/2025 12:28 PM EST Body Mass Index 22.71 03/29/2025 12:28 PM EST Plan of Treatment Upcoming Encounters Date Type Department Care Team (Late st Contact Info) Description 07/03/2025 10:30 AM EDT Office Visit [facility] [address] [place] [address] Leighann Dickey MD [address] [place] [address] Health Maintenance Due Date Last Done Comments Hepatitis B Vaccines (3 of 3 - 3-dose series) 05/07/1998 03/12/1998, 1997, 1997 Family Planning (PISQ) 2012 DTaP/Tdap/Td Vaccines (8 - Td or Tdap) 12/06/2023 12/05/2013, 09/29/2010, 07/11/2002, Additional history exists COVID-19 Vaccine ( season) 2024 Influenza Vaccine (#1) 2024 01/19/2014, 2007 SDOH Screening 09/22/2025 09/22/2024 Disability Screening 10/02/2025 10/02/2024 Alcohol/Substance Use Screening 03/29/2026 03/29/2025 Depression Screening 03/29/2026 03/29/2025, 03/29/20 25 Tobacco Screening 03/29/2026 03/29/2025 Pap Smear 03/15/2027 03/15/2024 Zoster Vaccines (1 [...] on patient's age to complete this topic Meningococcal B Vaccine Aged Out No l onger eligible based on patient's age to complete this topic Pneumococcal Vaccine: Pediatrics (0 to 5 Years) and At-Risk Patients (6 to 49) Years Aged Out No longer eligible based on patient's age to complete this topic RSV under 20 months Aged Out No longe r eligible based on patient's age to complete this topic Rotavirus Vaccines Aged Out No longer eligible based on patient's age to complete this topic Procedures Procedure Name Priority Date/Time Associated Diagnosis Comments FERRITIN Routine 03/29/2025 1:49 PM EST Weakness Iron deficiency COMPREHENSIVE METABOLIC PANEL Routine 03/29/2025 1:49 PM EST Weakness Iron deficiency TSH W/REFLEX TO FT4 Routine 03/29/2025 1 :49 PM EST Weakness Iron deficiency LD Routine 03/29/2025 1:49 PM EST Weakness CBC WITH AUTO DIFFERENTIAL Routine 03/29/2025 1:49 PM EST Weakness Iron deficiency POCT HEMOGLOBIN Routine 03/29/2025 1:04 PM EST Iron deficiency Weakness POCT GLUCOSE Routine 03/29/2025 1:04 PM EST Iron deficiency Weakness PAP SMEAR Routine 03/15/2024 10:15 AM EST Encounter for cervical Pap smear with pelvic exam HEPATITIS PANEL, GENERAL Routine 10/01/2023 10:00 AM EDT Iron deficiency HIV 1/2 ANTIGEN/ANTIBODY, FOURTH GENERATION W/RFL Routine 10/01/2023 10:00 AM EDT Iron deficiency from Last 3 Months or Most Recently Relevant to Health Maintenance Results * TSH with Reflex to Free T4 (03/29/2025 1:49 PM EST) TSH reflex Free T4 1.73 0.32 - 4.0 uIU/mL [facility] Blood 03/29/2025 1:49 PM EST 03/29/2025 4:00 PM EST us Leighann Dickey MD LAB BLOOD ORDERABLES Fin al Result [facility] [address] [place], [place] [phone] * (ABNORMAL) CBC auto differential (03/29/2025 1:49 PM EST) White Blood Count 5.3 4.8 - 10.8 X10*3/uL [facility] Red Blood Count 4.65 4.20 - 5.50 X10*6/uL [facility] Hemoglobin 12.7 12.0 - 16.0 g/dl [facility] Hematocrit 39.9 37.0 - 47.0 % [facility] Mean Corpuscular Volume 85.8 80.0 - 98.0 fL [facility] Mean Corpuscular Hemoglobin 27.3 27.0 - 33.0 pg [facility] Mean Corpuscular HGB Conc 31.8 31.0 - 35.0 g/dl [facility] Red Cell Distribution Width 13.3 11.0 - 16.0 % [facility] Platelet Count 272 160 - 400 X10*3/uL [facility] Mean Platelet Volume 11.9 9.4 - 12.3 fL [facility] Neutrophils Percent Auto 46.1 45 - 73 % [facility] Imm Gran Pct Auto 0.2 0.0 - 0.4 % [facility] Lymphocytes Percent Auto 39.8 20 - 40 % [facility] Monocytes Percent Auto 8.9 2 - 11 % [facility] Eosinophils Percent Auto 4.2(H) 0 - 4 % [facility] Basophils Percent Auto 0.8 0 - 2 % [facility] NRBC Pct Auto 0.0 0.0 - 0.2 /100WBC [facility] Neutrophils Absolute Auto 2.4 2.0 - 8.3 x10*3/uL [facility] Imm Gran Abs Auto 0.01 0.00 - 0.03 X10*3/uL [facility] Lymphocytes Absolute Auto 2.1 1.2 - 4.9 X10*3/uL [facility] Monocytes Absolute Auto 0.5 0.1 - 1.2 X10*3/uL [facility] Eosinophils Absolute Auto 0.2 0.0 - 0.4 X10*3/uL [facility] Basophils Absolute Auto 0.0 0.0 - 0.2 X10*3/uL [facility] NRBC Abs Auto 0.000 0.0 - 0.012 X10*3/uL [facility] Blood Venous blood specimen / Unknown 03/29/2025 1:49 PM EST 03/29/2025 4:00 PM EST Leighann Dickey MD LAB BLOOD ORDERABLES Fin al Result Performing Organization Address [facility] de Phone Number [facility] [address] [place] [phone] * (ABNORMAL) Lactate Dehydrogenase (LD) (03/29/2025 1:49 PM EST) Lactate Dehydrogenase 222(H) 122 - 220 U/L [facility] Blood Venous blood specimen / Unknown 03/29/2025 1:49 PM EST 03/29/2025 4:00 PM EST Leighann Dickey MD LAB BLOOD ORDERABLES Fin al Result Performing Organization Address [facility] Phone Number [facility] [address] [place] [phone] * (ABNORMAL) Ferritin (03/29/2025 1:49 PM EST) Ferritin 8(L) 10 - 122 ng/mL [facility] Blood Venous blood specimen / Unknown 03/29/2025 1:49 PM EST 03/29/2025 4:00 PM EST Leighann Dickey MD LAB BLOOD ORDERABLES Fin al Result Performing Organization Address [facility] Co de Phone Number [facility] [address] [place] [phone] * (ABNORMAL) Comprehensive Metabolic Panel (03/29/2025 1:49 PM EST) Pathologist [facility] Sodium 141 135 - 145 mmol/L [facility] Potassium 3.5 3.3 - 5.1 mmol/L [facility] Chloride 109(H) 96 - 108 mmol/L [facility] Carbon Dioxide 24 22 - 29 mmol/L [facility] Anion Gap 12 12 - 20 [facility] Urea Nitrogen (BUN) 8(L) 9 - 16 mg/dL [facility] Creatinine, Serum 0.68 0.5 - 1.4 mg/dL [facility] Estimated Glomerular Filt Rate >60 [facility] Comment:Chronic Kidney Disea se: Estimated GFR < 60 mL/min/[id number] Kidney Disease: Estimated GFR < 15 mL/min/1.73m2 Glucose 77 60 - 115 mg/dL [facility] Calcium 9.2 8.4 - 10.2 mg/dL [facility] Bilirubin, Total 0.3 0.0 - 1.0 mg/dL [facility] Aspartate Amino Transferase 20 5 - 31 U/L [facility] Alanine Aminotransferase 11 0 - 31 U/L [facility] Total Protein 7.4 6.5 - 8.0 g/dL [facility] Albumin Level 4.6 3.5 - 5.0 g/dL [facility] Alkaline Phosphatase 57 39 - 117 U/L [facility] Blood Venous blood specimen / Unknown 03/29/2025 1:49 PM EST 03/29/2025 4:00 PM EST us Leighann Dickey MD LAB BLOOD ORDERABLES Fin al Result [facility] [address] [place] [address] [phone] * POCT Glucose (03/29/2025 1:04 PM EST) Pathologist [facility] Glucose Blood, POC 93 60 - 200 mg/dL Comment:fasting QC Media Lot # [id number] Lot# Expiration Date [id number] Blood Capillary blood specimen / Unknown 03/29/2025 1:04 PM EST Leighann Dickey MD POINT OF CARE TEST ENTER /EDIT ORDERABLES Final Result * POCT Hemoglobin (03/29/2025 1:04 PM EST) [facility] Hemoglobin 13.0 12.0 - 15.0 QC Media Lot # [id number] Lot# Expiration Date [id number] Blood 03/29/2025 1:0 4 PM EST Leighann Dickey MD POINT OF CARE TEST ENTER /EDIT ORDERABLES Final Result * Pap Smear (03/15/2024 10:15 AM EST) Swab Cervical swab / Unknown 03/15/2024 10:15 AM EST 03/16/2024 8:20 AM EST Narrative [facility] - 03/20/2024 11:39 AM EST ----- ------- Name: AaronLesiaayaka Age/Sex: 28/F : 1995 Unit#: [id number] Attend Dr: Re03/15/24 Status: PRE REF Location: [facility] Disch: ----- ------- SPEC : [id number] RECD: 03/16/24 STATUS: CANDICE HAYNES NUM: [id number] NAT: 03/15/24-[address] [facility] [address]: Leighann Dickey MD ENTERED: 03/16/24 SP TYPE: Pap Smr OTHR DR: ORDERED: Pap Smear Interpretation Satisfactory for evaluation. No endocervical cells seen. Negative for intraepithelial lesion or malignancy. Mild inflammation. Clinical Information LMP: 03/14/2024 Previous PAP test: Unknown date/findings Material Received ThinPrep-Cervical ----- ------- Signed (signature on file) MALOU Casillas (ASCP) 03/20/24 1139 ----- ------- END OF REPORT us Leighann Dickey MD LAB CYTOLOGY ORDERABLES Final Result [facility] [address] [place] [phone] * Hepatitis Panel, General (10/01/2023 10:00 AM EDT) Hepatitis A IgM Nonreactive Nonreactive [facility] Comment:IgM antibodies to PORTER V not detected; does not exclude earlyacute or recovered HAV infection. ~Hepatitis B Surface Antibody NONREACTIVE Nonreactive [facility] Comment:Nonreactive: < 8.00 mIU/mL Hepatitis B Core Antibody Nonreactive Nonreactive [facility] Hepatitis C Antibody Nonreactive Nonreactive [facility] Comment:Antibodies to HCV no t detected; does not exclude early acuteHCV infection. Hepatitis B Surface Ag Negative Negative [facility] Blood 10/01/2023 10:0 0 AM EDT 10/01/2023 11:05 AM EDT Leighann Dickey MD LAB BLOOD ORDERABLES Fin al Result Performing Organization Address [facility] Co de Phone Number [facility] [address] [place] [phone] * HIV-1/2 Antigen and Antibodies, Fourth Generation, with Reflexes (10/01/2023 10:00 AM EDT) HIV AB/AG Nonreactive Nonreactive [facility] Comment:HIV-1 p24 Ag and/or HIV-1/HIV-2 Ab not detected.A test result that is nonreactive does not exclude thepossibility of exposure to or infection with HIV-1 and/orHIV-2. Nonreactive results in this assay for individualswith prior exposure to HIV-1 and/or HIV-2 may be due toantigen and antibody levels that are below the limit ofdetection of this assay.The R17 HIV Ag/Ab Combo assay result andsupplemental assay results should be interpreted inconjunction with the patient's clinical presentation,history and other laboratory results. If the results areinconsistent with clinical evidence, additional testing issuggested to confirm the result. Blood Venous blood specimen / Unknown 10/01/2023 10:00 AM EDT 10/01/2023 11:05 AM EDT us Leighann Dickey MD LAB BLOOD ORDERABLES Fin al Result Performing Organization Address City/[facility]/ZIP Co de Phone Number [facility] [address] [place] [phone] from Last 3 Months or Most Recently Relevant to Health Maintenance Insurance [facility] C3 Care Teams Keno Clerk Relationship Specialty Start Date End Date Leighann Dickey MD [address] [place] [phone] PCP - General Internal Medicine 10/01/23
--- OUTSIDE RECORDS SUMMARY | 2025-03-29 17:58 | XMS_ITS | Encounter Summary ---
Author Organization [employer] Address [address] [facility] 7t [place] [address] Care Team Providers Care Ekg Technician Name Role Phone Leighann Dickey MD Primary Care Provider + Reason for Visit * Reason Onset Date Comments Nurse Triage 03/26/2025 Encounter Details Date Type Department Care Team ([facility] st Contact Info) Description 03/26/2025 Telephone [facility] [address] [place] [address] Leighann Dickey MD [address] [place] [address] Nurse Triage Social History Tobacco Use Types Packs/Day Years Used Date Smoking Tobacco: Never Smokeless Tobacco: Never Alcohol Use Standard Drinks/Week Comments Never 0 (1 standard drink = 0.6 oz pur e alcohol) Depression Answer Date Recorded Patient Health Questionnaire-9 Score 0 10/02/2024 Patient Health Questionnaire-9 Score 0 10/02/2024 Last PHQ-9: Questionnaire Data Not on file 0 10/02/2024 Housing Stability Answer Date Recorded What is [...] Date Recorded Patient Health Questionnaire-2 Score 0 10/02/2024 Internet Access Answer Date Recorded Internet Access [...] encounter Miscellaneous Notes * Telephone Encounter - Loulou Alcaraz RN - 03/26/2025 3:47 PM EST TC to pt to triage for weakness. Pt states that over the last few months she has been experiencing worsening generalized weakness and decreased energy. Pt feels weak, dehydrated, increased HR and hair loss. States pt has decreased energy for her day to day activities. Denies any dizzy spells, sick symptoms, blurred vision, headaches, or trouble sleeping. Pt is able to ambulate without concerns. Pt states she is taking in a lot of fluids. No new medications as well. Pt scheduled with PCP on 03/29/25 at 12:15 pm. Pt agrees to plan. Protocol Used: Weakness (Generalized) and Fatigue (Adult) Protocol-Based Disposition: See in Office or Video Visit within 3 Days Video visit offer not recorded Positive Triage Questions: * Mild weakness (e.g., does not interfere with ability to work, go to school, normal activities) and lasts > 1 week * Fatigue (i.e., tires easily, decreased energy) and lasts > 1 week * Weakness is a chronic symptom (recurrent or ongoing AND lasting > 4 weeks) * Fatigue is a chronic symptom (recurrent or ongoing AND present > 4 weeks) * All higher-acuity triage questions were negative. Care Advice Discussed: * Reasons To Call Back - Unable to stand or walk - Passes out - Breathing difficulty occurs - You become worse * Telephone Encounter - Brian Demarcus - 03/26/2025 2:59 PM EST Symptom: Weakness Outcome: Schedule an urgent appointment (within 1 hour) or talk to a nurse or provider soon Reason: Getting worse Please contact pt at [phone]. documented in this encounter Plan of Treatment Upcoming Encounters Date Type Department Care Team (Late st Contact Info) Description 07/03/2025 10:30 AM EDT Office Visit [facility] [address] [place], [place] [phone] Leighann Dickey MD [address] [place] [phone] documented as of this encounter Visit Diagnoses Not on filedocumented in this encounter Additional Health Concerns Assessment Noted Time PHQ-9 Depression Total Score: 0 10/03/19 25 2:10 PM EDT documented as of this encounter Care Teams Ekg Technician Relationship Specialty Start Date End Date Leighann Dickey MD [address] [place] [address] [phone] PCP - General Internal Medicine 10/01/23 documented as of this encounter
--- OUTSIDE RECORDS SUMMARY | 2025-03-29 17:58 | XMS_ITS | Encounter Summary ---
Author Organization [employer] Address [address] [facility] [address] [place] [address] Care Team Providers Care Take Off Worker Name Role Phone Leighann Dickey MD Primary Care Provider + Reason for Visit * Reason Onset Date Comments Appointment Request 01/17/2024 Encounter Details Date Type Department Care Team ([facility] Contact Info) Description 01/17/2024 Telephone [facility] [address] [place] [address] Leighann Dcikey MD [address] [place] [address] Appointment Request Social History Tobacco Use Types [...] Description 07/03/2025 10:30 AM EDT Office Visit [facility] [address] [place] [address] Leighann Dickey MD [address] [place] [address] documented as of this encounter Visit Diagnoses Not on filedocumented in this encounter Care Teams Take Off Worker Relationship Specialty Start Date End Date Leighann Dickey MD [address] [place] [phone] PCP - General Internal Medicine 10/01/23 documented as of this encounter
--- OUTSIDE RECORDS SUMMARY | 2025-03-29 17:58 | XMS_ITS | Encounter Summary ---
Author Organization [employer] Address [address] [facility] 7t [place] [address] Care Team Providers Care Chief Data Officer Name Role Phone Leighann Dickey MD Primary Care Provider + Reason for Visit * Reason Onset Date Comments Chart Prep 03/28/2025 Encounter Details Date Type Department Care Team ([facility] Contact Info) Description 03/28/2025 Telephone [facility] [address] [place] [phone] Leighann Dickey MD [address] [place] [address] Chart Prep Social History Tobacco Use Types Packs/Day Years [...] encounter Miscellaneous Notes * Telephone Encounter - Rylee Amos MA - 03/28/2025 3:37 PM EST RBS & HgB * Telephone Encounter - Margoth Harvey MA - 03/28/2025 10:55 AM EST Chart Prep Labs: done Images: not applicable Referrals: not applicable Vaccines due: Covid, Tdap, and Hep B, Flu Screenings: LMP and PISQ Overdue care gaps: SBIRT, PHQ-9, and ALONSO-7 documented in this encounter Plan of Treatment Upcoming Encounters Date Type Department Care Team (Late st Contact Info) Description 07/03/2025 10:30 AM EDT Office Visit [facility] [address] [place] [address] Leighann Dickey MD [address] [place] [address] documented as of this encounter Visit Diagnoses Not on filedocumented in this encounter Additional Health Concerns Assessment Noted Time PHQ-9 Depression Total Score: 0 10/03/19 25 2:10 PM EDT documented as of this encounter Care Teams Chief Data Officer Relationship Specialty Start Date End Date Leighann Dickey MD [address] [place] [phone] PCP - General Internal Medicine 10/01/23 documented as of this encounter
[2025-03-30 05:29] LABS: Lyme Abs Screen <0.90 index
[2025-03-30 08:13] LABS: HBS Num1 0.00 mIU/mL (0-7.99); HBc Num1 0.08 S/CO (0.00-0.79); HBsAGNum1 0.41 S/CO (0.00-0.99); HIV Num 1 0.07 S/CO (0.00-0.99); Hepatitis A Antibody IgM 0.16 Index (0-0.79); Hepatitis B Surface Antigen Negative (Negative); ~HepC Num1 0.09 S/CO (0.00-0.79); ~Hepatitis A Antibody IgM Nonreactive (Nonreactive); ~Hepatitis B Surface Antibody NONREACTIVE (Nonreactive); ~Hepatitis C Antibody Nonreactive (Nonreactive)
[2025-03-30 08:37] LABS: Syphilis Screen Nonreactive (Nonreactive)
== END 2025-03-29 13:46 | disposition home or self-care (01) ==
LOC: HO.HHCL 13:45
PROVIDERS: PCP Internal Medicine; Visit Provider Internal Medicine
DX: R53.1 Weakness (principal); E61.1 Iron deficiency; Z11.4 Encounter for screening for human immunodeficiency virus [HIV]; Z11.59 Encounter for screening for other viral diseases; Z01.84 Encounter for antibody response examination; Z20.2 Contact with and (suspected) exposure to infections with a predominantly sexual mode of transmission
CPT/HCPCS: 36415; 80053; 82728; 83615; 84443; 85025; 86038; 86617; 86618; 86704; 86706; 86709; 86780; 86803; 87340; 87389